=== PATIENT | male | born 1975 | race Caucasian/White ===

== ENCOUNTER 2018-09-22 17:21 | Emergency (ER) | payer MEDICAID, OTHER, SELFPAY ==
[2018-09-22 17:22] VITALS: BP 139/76; PULSE 72; RESP 17; TEMP 36.6; O2SAT 97; BMI 35.0
--- NOTE | 2018-09-22 17:29 | RAD_ITS ---
STUDY: X-RAY - LEFT KNEE REASON FOR EXAM: Male, 43 years old. Left knee pain denies injury TECHNIQUE: 4 view(s) of the knee. COMPARISON: None. FINDINGS: Normal visualized distal femur. Normal visualized proximal tibia and fibula. Normal proximal tibiofibular articulation. There is mild degenerative arthrosis of the medial femorotibial compartment. Normal lateral femorotibial compartment. There is mild degenerative arthrosis of the patellofemoral articulation. There is mild soft tissue edema on the medial aspect of the knee. RAD/Knee 4 or More Views IMPRESSION: Soft tissue edema. Mild arthrosis. No visualized acute fracture. Electronically Signed: Sabiha Lam MD at 17:50 EDT Tel , Service support ,
[2018-09-22 18:55] VITALS: BP 158/96; O2SAT 100
--- NOTE | 2018-09-22 19:26 | ED.DCSUM_ITS ---
- ER Visit Summary Date of Service: 09/22/18 Chief Complaint: Left knee pain History of Present Illness: The patient is a 43 M who presents with knee pain onset this morning. 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 Patient began having left knee pain w ith radiation down to the foot this morning. Pain is burning and constant. It is worse with weightbearing and he has pain shooting down the medial left calf into the left big toe. Patient is also having pain to the lateral knee. He denies any fever, or other constitutional symptoms. No history of trauma. He has a history of left arthrocentesis in that knee for unknown reason in the past. Patient has history of hypertension. No other medical problems. Physical Examination: Vital signs: afebrile, hemodynamically stable, no hypoxia on room air General: well nourished, well developed, in no distress Skin: warm, dry, no rash, no pallor HEENT: normocephalic and atraumatic; PERRL, EOMI, moist mucous membranes Cardiovascular: regular rate and rhythm, 2+ pulses all distal extremities Respiratory: No increased work of breathing, MSK: Moves all extremities, no deformities, normal strength, symmetric appearance of the bilateral knees. Left calf is greater in circumference than the right, no tenderness or palpable cords, sensation motor function intact in the distal lower extremities, no varus or valgus laxity of the left knee, negative anterior posterior drawer sign, mild diffuse tenderness to the medial and lateral margins, no joint effusion palpated, no fullness in the popliteal fossa, full active extension and passive flexion intact beyond 90 degrees. Neuro: Awake and alert, oriented ?4. No facial droop, sensation and motor function intact and symmetric Test Results: Clinical Impression(s) from Imaging Studies Knee X-Ray 09/22/18 17:29 IMPRESSION: Soft tissue edema. Mild arthrosis. No visualized acute fracture. Electronically Signed: Sabiha Lam MD at 17:50 EDT Tel , Service support , Venous Duplex 09/22/18 21:10 IMPRESSION: Left lower extremity venous Doppler exam negative for deep venous thrombosis. Electronically Signed: Cristina Pham MD at 22:52 EDT , Service support , Medications Given Discontinued Medications Ibuprofen (Motrin) 600 mg PO X1 ONE Stop: 09/22/18 19:24 Last Admin: 09/22/18 20:02 Dose: 600 mg Emergency Department Course and Treatment: XRay shows no bony abnormalities. Given patient's occupation and the asymmetric calf size with the pain, ultrasound performed to rule out DVT. Ice was applied to the knee patient was given ibuprofen for pain. There was no DVT noted on the ultrasound. Patient was given Tobias wrap for the knee. He was given follow-up with orthopedics. She was feeling better after treatment. Patient will return if any worsening of his condition. He was discharged home. Treatment Plan: [] Disposition: [] Impression: Knee sprain This note was generated with [employer] dictation software. It may contain incorrect words, spelling, and punctuation that were not noted in review of the chart prior to signing ED Disposition - Plan for ED Patient: Disposition: Home or Assisted Living Instructions: ED Sprain Knee Referrals: Finn Salinas MD [Primary Care Provider] - Lazaro Bailey DO [STAFF PHYSICIAN] - 1 Week if not improving Additional Instructions: Rest and elevate the leg when possible. Apply ice 3-4 times a day. Use ibuprofen as needed for pain. Use the Tobias wrap as needed for comfort. If you continue to have difficulties with your knee, please follow-up with your orthopedic doctor on this paperwork. If you have any worsening of your condition or any new concerning symptoms, please return immediately to the emergency department for another evaluation.
[2018-09-22] MEDS: Ibuprofen 600 MG Tablet PO (20:02)
--- NOTE | 2018-09-22 21:10 | US_ITS ---
STUDY: VENOUS DOPPLER ULTRASOUND - LEFT LOWER EXTREMITY REASON FOR EXAM: Male, 43 years old. Left knee pain. TECHNIQUE: Ultrasound evaluation of the deep vein system to include coles-scale imaging and compression was performed. Coles-scale imaging and Doppler sonographic evaluation, including duplex spectral analysis and qualitative color flow sonography, was performed. COMPARISON: None. FINDINGS: Common Femoral Vein: Normal compression, spontaneity and augmentation. Normal color Doppler. Common Femoral Vein/Greater Saphenous Junction: Normal compression. Femoral Proximal: Normal compression. Femoral Middle: Normal compression, spontaneity and augmentation. Normal color Doppler. Femoral Distal: Normal compression. Popliteal Vein: Normal compression, spontaneity and augmentation. Normal color Doppler. Posterior Tibial Vein: Normal compression. Peroneal Vein: Normal compression. US/Venous Duplex Imag/Limited/Uni IMPRESSION: Left lower extremity venous Doppler exam negative for deep venous thrombosis. Electronically Signed: Cristina Pham MD at 22:52 EDT , Service support ,
[2018-09-22 23:06] VITALS: BP 139/76; PULSE 72; RESP 17; O2SAT 97
== END 2018-09-22 23:07 | disposition home or self-care (01) ==
PROVIDERS: Emergency Provider Emergency Medicine; Family Provider Internal Medicine; PCP Internal Medicine
DX: S83.92XA Sprain of unspecified site of left knee, initial encounter (principal); X50.0XXA Overexertion from strenuous movement or load, initial encounter; Y93.9 Activity, unspecified; Y92.89 Other specified places as the place of occurrence of the external cause; Y99.9 Unspecified external cause status; I10 Essential (primary) hypertension
CPT/HCPCS: 73564; 93971; 99283

== ENCOUNTER 2019-12-08 09:14 | Emergency (ER) | payer BC, SELFPAY ==
[2019-12-08 09:15] VITALS: BP 135/87; PULSE 80; RESP 18; TEMP 36.6; O2SAT 98; BMI 34.6
--- NOTE | 2019-12-08 09:26 | RAD_ITS ---
STUDY: X-RAY - LEFT FOOT CLINICAL: Male, 44 years old. Stepped in a hole 2 days ago, heel pain. TECHNIQUE: 4 view(s) of the foot. COMPARISON: Ankle same date FINDINGS: Osseous structures of the foot appear intact, normally articulated, normally mineralized, preserved arch, unremarkable soft tissues. Achilles insertion enthesophyte and plantar calcaneal spur. RAD/Foot min 3 Views IMPRESSION: No radiographic evidence of acute foot injury. Electronically Signed: Kishan Oneal MD at 11:03 EDT Tel , Service support ,
--- NOTE | 2019-12-08 09:26 | RAD_ITS ---
STUDY: X-RAY - LEFT ANKLE REASON FOR EXAM: Male, 44 years old. Stepped in hole 2 days ago, heel pain. TECHNIQUE: 3 view(s) of the ankle. COMPARISON: Foot same date FINDINGS: No significant ankle soft tissue swelling is evident. Calcaneus appears intact. Proximal foot intact. Distal tibia and fibula intact, tibiotalar articulation normal, dome of the talus normal. Subtalar joint appears normal. RAD/Ankle min 3 Views IMPRESSION: No radiographic evidence of acute ankle injury. Electronically Signed: Kishan Oneal MD at 11:27 EDT Tel , Service support ,
--- NOTE | 2019-12-08 10:07 | ED.DCSUM_ITS ---
History of Present Illness <PietroFrank - Last Filed: 12/08/19 10:25> Informant: Patient Occurred: Yesterday Mechanism/Context: Fall Onset: Yesterday Context: Sudden Onset Timing: Continuous Quality of Pain: Sharp Location: left leg/ankle Current Severity: Moderate Maximum Severity: Severe Worsened by: walking Relieved by: rest Associated Symptoms: Negative for: Parasthesia, Weakness, Loss of Funtion Narrative: 44-year-old male presents with left lower extremity pain after he stepped in a hole yesterday and inverted his ankle. He is having ankle and foot pain. Did not fall to the ground. No head trauma. No loss of consciousness. No other injuries. He is still ambulatory. Tetanus Immunization: Unknown Prior similar symptoms: No Recent Illness/Hospitalization: No <Ming Love - Last Filed: 12/08/19 10:28> Chief Complaint: Lower Extremity Injury Past Medical History <WestbrookFrank - Last Filed: 12/08/19 10:25> Prior records reviewed: Yes Past Medical History: - - Hypertension Surgical History: no surgical history Lives: With Family Smoking Status: Never smoker Alcohol: Occasional Drugs: None <Ming Love - Last Filed: 12/08/19 10:28> - Allergies and Home Meds Allergies/Adverse Reactions: Allergies No Known Allergies Allergy (Verified 12/08/19 09:17) Primary Care Physician: Finn Salinas MD [Primary Care Provider] - Review of Systems All systems negative except as indicated General: Denies: Chills, Fever, Sweats Eyes: Denies: Visual changes - bilaterally, Diplopia ENT: Denies: Rhinorrhea, Sore throat Cardiovascular: Denies: Chest pain, Palpitations Respiratory: Denies: Dyspnea, Cough, Dyspnea on exertion Gastrointestinal: Denies: Abdominal pain, Nausea, Vomiting, Diarrhea, Melena, Hematochezia Genitourinary: Denies: Dysuria, Hematuria, Frequency Musculoskeletal: Reports: Swelling, Extremity Pain. Denies: Myalgias, Arthralgias, Neck pain, Back pain Skin: Denies: Rash, Wounds Neurological: Denies: Headache, Weakness, Numbness <Ming Love - Last Filed: 12/08/19 10:28> Physical Exam Vital Signs/Narrative: Vital Signs Temp Pulse Resp BP Pulse Ox 06/13/20 09:15 98 F 80 18 135/87 H 98 <Frank Westbrook - Last Filed: 12/08/19 10:25> Vital Signs/Narrative: Vital Signs Temp Pulse Resp BP Pulse Ox 12/08/19 09:15 98 F 80 18 135/87 H 98 Inital Vital Signs reviewed: Yes - Extremity Exam Left Ankle: - - Mild swelling left ankle. Skin intact. No deformity. He has bony tenderness over his lateral malleolus, calcaneus and dorsum of his midfoot. He is able to plantarflex and dorsiflex. Nicolas test is negative. DP and PT pulses are normal. Capillary refill and sensation all 5 toes normal. No proximal fibular tenderness. Knee is nontender on palpation. He has normal active range of motion of his knee. General: Well nourished, Well developed Head: Normocephalic, Atraumatic Eyes: Perrl, EOMI ENT: No Trauma, Moist Mucous Membranes Neck: Nontender, Full ROM Cardiovascular: Regular rate, Regular rhythm, No murmurs Respiratory: No distress, CTA bilaterally, Chest nontender Abdomen: Soft, Nontender, Nondistended, Normal bowel sounds Back: Nontender Skin: Normal color, No rash Neurological: Alert, Oriented x3, Cranial nerves II-XII grossly intact, Normal Strength, Normal Sensation Psychological: Normal affect <Ming Loev - Last Filed: 12/08/19 10:28> Diagnostic/Tx/Re-eval - Medical Decision Making Evaluate the patient 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 44-year-old male on was walking stepped in a hole and complaining of pain primarily to his left heel ankle and proximal foot. No other injuries. Ill-appearing middle-aged male no acute distress vital signs stable afebrile. HEENT, neck, heart, lung, abdominal exam are all unremarkable. Chest were nontender. Pelvic girdle intact. Full range of motion of both hips, knees and ankles. He has mild pain on palpation primarily in the left heel. Also the distal calf and ankle. There is no gross bony deformity. There is only minimal swelling. His DP pulses intact. He is able to wiggle his toes. There is no gross bony deformity. Skin is intact. Achilles tendon is intact. Otherwise exam unremarkable. X-ray left foot no acute abnormality 3 views read by myself. X-ray left ankle 3 views read by myself no acute abnormality. No fracture or dislocation. Impression: 1. Acute fall 2. Acute left heel contusion/ankle sprain and calf strain. Ice, elevate and Tylenol Motrin for pain. Follow-up with not improving. Patient was offered and deferred a postop shoe. <Frank Westbrook - Last Filed: 12/08/19 10:25> ED Disposition <Frank Westbrook - Last Filed: 12/08/19 10:25> <Ming Love - Last Filed: 12/08/19 10:28> - Plan for ED Patient: Disposition: Home or Assisted Living Diagnosis: Contusion of left heel, Strain of left calf muscle Instructions: ED EXTREMITY CONTUSION Lower, ED Strain Muscle Ext Referrals: Finn Salinas MD [Primary Care Provider] -
[2019-12-08] MEDS: Acetaminophen 500 MG Tablet 1000 MG PO (10:53)
--- OUTSIDE RECORDS SUMMARY | 2020-04-13 12:55 | XMS RPT_ITS | CCD ---
:1975 External Reference #:[id number] Author Organization [facility] Care Team Providers Name Role Phone Taylor Lala Primary Care Provider Medications Medication Name Sig Date Prescriber Location fluticasone fluticasone (FLONASE) 11-16-[address] [facility] 50 mcg/actuation Finn Lala (4419 5) nasal spray Indications: Acute non-recurrent frontal sinusitis Use 2 Sprays in each nostril once daily. 1 Bottle 2 11/16/2018 Active Comment: Use 2 Sprays in each nostril once daily. Lisinopril lisinopril (ZESTRIL, 07-13-2019 - Lucía ([facility] PRINIVIL) 20 mg tablet 12-21-2019 Older (4419 5) Indications: Essential hypertension Take 1 tablet by mouth once daily. 30 tablet 0 12/19/2019 12/21/2019 Discontinued Comment: Take 1 tablet by mouth once daily. Problems Category Problem Name Status Date Location Essential hypertension Essential hypertension Active 07-01-19 - [facility] (87108) Other nutritional; Obesity Active 12-06-2007 - [facility] endocrine; and (84611) metabolic disorders Other upper respiratory Seasonal allergic Active 07-27-2010 - [facility] disease rhinitis (94338) Results Result Name Value Range Unit Interpretation Flag [facility]INT[facility] Normal 12-24-2019 [facility] NADYASAI Douglass [place] ([id number]) 1975 [facility] Date Time Provider Department ([id number]) 12/24/19 FINN LALA During your visit today, we recorded the following informati on about you: Abby Salomon LPN 12/24/2019 10:24 AM Signed ----- Message from Finn Lala sent at 12/23/2019 2:04 PM EDT ----- All labs within normal limits. Abby Salomon LPN 12/24/2019 10:26 AM Signed Left message to call office and speak to nurse for non -urgent results. Abby Salomon LPN 01/17/2020 11:55 AM Signed Patient returned call 12/24/2019, spoke to Nurse. Abby Salomon LPN Allergies As of Date: 12/24/2019 (No Known Allergies) Date Reviewed: 08/27/2019 [facility] [place] - Fully Assessed Reason for Visit: Results [95] Prescriptions as of 12/24/2019 Sig: LISINOPRIL 20 MG TABLET Take 1 tablet by mouth once d* NAPROXEN 500 MG TABLET Take 1 tablet by mouth twice * FLUTICASONE PROPIONATE 50 MCG* Use 2 Sprays in each nostril * More... Problem List As Of Date 12/24/2019 Noted Resolved OBESITY NOS [E66.9] 12/06/2007 More... Vasectomy status [Z98.52] 12/26/2007 07/27/2010 More... Depressive disorder, not elsewhere classified [*06/16/2009 0 11/16/2018 Seasonal allergic rhinitis [J30.2] 07/27/2010 Essential hypertension [I10] 07/01/2017 Anxiety disorder [F41.9] 07/01/2017 11/16/2018 Encounter Status:Closed by ABBY SALOMON LPN on 01/17/20 [facility] Telephone (FAMPWS) Normal 12-24-2019 [facility] SAI CHASE ([id number]) 1975 [facility] Date Time Provider Department ([id number]) 12/24/19 FINN LALA During your visit today, we recorded the following informati on about you: Araceli Mckenna LPN, LPN 12/24/2019 10:55 AM Signed ----- Message from Finn Lala sent at 12/23/2019 2:04 PM EDT ----- All labs within normal limits. Araceli Mckenna LPN, LPN 12/24/2019 10:57 AM Signed Attempted to contact pt Messages states call not available at this time. Will need to try back Araceli Mckenna LPN, LPN 12/24/2019 1:18 PM Signed Spoke with pt gave information provided. Pt voices gerson winters. Allergies As of Date: 12/24/2019 (No Known Allergies) Date Reviewed: 08/27/2019 Reviewed by: Kusum ([facility]) [place] - Fully Assessed Reason for Visit: Results [95] Prescriptions as of 12/24/2019 Sig: LISINOPRIL 20 MG TABLET Take 1 tablet by mouth once d* NAPROXEN 500 MG TABLET Take 1 tablet by mouth twice * FLUTICASONE PROPIONATE 50 MCG* Use 2 Sprays in each nostril * More... Problem List As Of Date 12/24/2019 Noted Resolved OBESITY NOS [E66.9] 12/06/2007 More... Vasectomy status [Z98.52] 12/26/2007 07/27/2010 More... Depressive disorder, not elsewhere classified [*06/16/2009 0 11/16/2018 Seasonal allergic rhinitis [J30.2] 07/27/2010 Essential hypertension [I10] 07/01/2017 Anxiety disorder [F41.9] 07/01/2017 11/16/2018 Encounter Status:Closed by ARACELI MCKENNA LPN on 12/24/19 progress on 2019-11 PROGRESS HNO ID: [id number] Normal 12-21-2019 [facility] Author: Finn Lala [facility] ([id number]) Service: ? Author Type: Physician Type: Progress Notes Filed: 12/21/2019 12:55 PM Note Text: This note was created using [employer]. Subjective Patient presents with: ER F/U Hypertension Sai Chase is a 44 year old male. He stepped into a ho le 12/06 and injured his left foot and ankle. He went to the ER where he was diagnosed with heel contusion, ankle and calf sprain. He was advised O TC analgesics and he was taking Tylenol with some relief. Thick socks help ed. He still had pain on initial weight bearing and prolonged walking or standing on a hard surface. His hypertension was controlled now. Review of Systems Constitutional: Negative. Respiratory: Negative. Cardiovascular: Negative. Gastrointestinal: Negative. Musculoskeletal: Positive for arthralgias. Neurological: Negative. ACTIVE PROBLEM LIST Obesity, Unspecified Seasonal Allergic Rhinitis Essential Hypertension Current Outpatient Medications Medication Sig - [START ON 01/16/2020] lisinopril (ZESTRIL, PRINIVIL) 20 mg tablet Take 1 tablet by mouth once daily. - fluticasone (FLONASE) 50 mcg/actuation nasal spray Use 2 S prays in each nostril once daily. - naproxen (NAPROSYN) 500 mg tablet Take 1 tablet by mouth t wice daily as needed (for pain/inflammation). Take with food. No current facility-administered medications for this visit. Objective BP 118/60 Pulse 80 Temp 36.6 ?C (97.8 ?F) (Tympanic) R abigail 16 Wt 95.7 kg (211 lb) Physical Exam Constitutional: Appearance: He is not ill-appearing. Cardiovascular: Rate and Rhythm: Normal rate and regular rhythm. Heart sounds: No murmur. No gallop. Pulmonary: Breath sounds: Normal breath sounds. No wheezing or rales. Musculoskeletal: General: No swelling. Left knee: Normal. Left ankle: He exhibits normal range of motion, no swelling, no ecchymosis and no deformity. Tenderness. Achilles tendon nor mal. Left lower leg: He exhibits tenderness. He exhibits no bony tenderness, no swelling and no deformity. No edema. Left foot: Normal range of motion. Tenderness present. No sw elling, crepitus or deformity. Neurological: Mental Status: He is alert. ER reports reviewed. X rays left foot and ankle negative. Assessment and Plan ASSESSMENT/PLAN: 1. Sprain of left foot, subsequent encounter - ICD9: V58.89, 845.10, ICD10: S93.602D (primary diagnosis) - NAPROXEN 500 MG TABLET. Take one(1) tablet two(2) times da cydney as needed. Discussed medication dosage, usage, goals of therapy , and side effects. - CBC 2. Essential hypertension - ICD9: 401.9, ICD10: I10 - good control - Continue current medication(s) - Goal of BP <130/80 - LISINOPRIL 20 MG TABLET - COMP METABOLIC PANEL - LIPID PANEL, NONFASTING 3. Encounter for screening for HIV - ICD9: V73.89, ICD10: Z1 1.4 - HIV 1 2 COMBO(AG/AB),WITH REFLEX TO DIFFERENTIATION 4. Need for hepatitis C screening test - ICD9: V73.89, ICD10 : Z11.59 - HEP C AB IA BLOOD Patient indicated understanding and willingness to follow re commendations. Finn Lala MD lipid panel, nonfast on 2019-12-21 Cholesterol [Mass/Vol] 140 <200 mg/dL Normal 020 [facility] [place] [facility] (27594) Comment: Result Comment: <200 mg/dL, Desirable 200-239 mg/dL, Borderline hi gh >239 mg/dL, High Performed By: #### CMP, CBC, LIPNF, AHCV, HIV12C ####[facility] [address] [place], [place] [phone] Cholesterol in 1.88 <2.54 mg/dL Normal 12-21-2019 [facility] LDL/Cholesterol in HDL [[facility] (66441) ratio] Comment: Result Comment: Reference: 1. National Cholesterol Educ ation Program ATP III Guideline At-A-Glance Quick Desk Reference: National Heart, Lung, and Blood [place]. National Institutes of Health. 2001: NIH Publication No. 01-3305. 2. An International Atherosc lerosis Society position paper: global recommendations for the management of dyslipidemia: executive summary, Atherosclerosis. 2014: 232(2):410-413. Performed By: #### CMP, CBC, LIPNF, AHCV, HIV12C ####[facility] [address] [place], [place] [phone] Cholesterol.total/Cholesterol in 3.50 <5.10 mg/dL Normal 12-21-2019 [facility] HDL [Mass ratio] [facility] (85032) Comment: Performed By: #### CMP, CBC, LIPNF, AHCV, HIV12C ####[facility] [place], [place] [phone] HDL Cholesterol, NF 40 >39 mg/dL Normal 12-21-2019 [facility] [place] [facility] (54058) Comment: Result Comment: 40-59 mg/dL, Acceptable >59 mg/dL, High: Negative ri sk factor for coronary heart disease <40 mg/dL, Low: Positive ris k factor for coronary heart disease Performed By: #### CMP, CBC, LIPNF, AHCV, HIV12C ####[facility] [place], [place] [phone] LDL Cholesterol, NF 75 <100 mg/dL Normal 12-21-2019 [facility] [place] [facility] (59804) Comment: Result Comment: <100 mg/dL, Optimal 100-129 mg/dL, Near optimal/ above optimal 130-159 mg/dL, Borderline hi gh 160-189 mg/dL, High >189 mg/dL, Very high Secondary prevention optimal LDL Cholesterol levels are recommended to be < 70 mg/dL Performed By: #### CMP, CBC, LIPNF, AHCV, HIV12C ####[facility] [address] [place], [place] [phone] Non HDL Chol, NF 100 <130 mg/dL Normal 12-21-2019 [facility] (03164) Comment: Result Comment: <130 mg/dL, Optimal 130-159 mg/dL, Near optimal/ above optimal 160-189 mg/dL, Borderline hi gh 190-219 mg/dL, High >219 mg/dL, Very high Secondary prevention optimal non HDL Cholesterol levels are recommended to be < 100 mg/dL Performed By: #### CMP, CBC, LIPNF, AHCV, HIV12C ####[facility] [address] [place], [place] [phone] Triglycerides, NF 126 <150 mg/dL Normal 12-21-2019 [facility] (77389) Comment: Result Comment: <150 mg/dL, Normal 150-199 mg/dL, Borderline hi gh 200-499 mg/dL, High >499 mg/dL, Very high Performed By: #### CMP, CBC, LIPNF, AHCV, HIV12C ####[facility] [place], [place] [phone] VLDL Cholesterol, NF 25 <30 mg/dL Normal 0 [facility] [place] [facility] (64468) Comment: Performed By: #### CMP, CBC, LIPNF, AHCV, HIV12C ####[place] [address] [place], [place] [phone] [id number] ag +[id number] ab on 2019-12-21 HIV 12 Ag/Ab Non Reactive Non Reactive Normal 12-21-2019 [facility] [place] [facility] (33602) Comment: Performed By: #### CMP, CBC, LIPNF, AHCV, HIV12C ####[place] [address] [place], [place] [phone] HIV-1/2 Antibody Normal 12-21-2019 [facility] (00667) Comment: Result Comment: Test Not Ind icated Negative No evidence of HIV-1 or HIV- 2 infection. Should recent infection be suspected, repeat testing may be considered 2-3 weeks after this draw. HIV Information: [place] Rev. C ode 3701.243(E): This information has been di sclosed to you from confidential records protected from disclosure by state law. You shall make no further disclosure of this information without the specific, written, and i nformed release of the indiv idual to whom it pertains or as otherwise permitted by state law. A general authorization for the release of medical or other information is not sufficient for the purpose of the release of HIV test results or diagnoses. Performed By: #### CMP, CBC, LIPNF, AHCV, HIV12C ####[facility] [place], [place] [phone] hepatitis c ab ia o n 2019-12-21 Hepatitis C Ab IA Negative Negative Normal 12-21-2019 [facility] (80601) Comment: Performed By: #### CMP, CBC, LIPNF, AHCV, HIV12C ####[place] [address] [place], [place] [phone] comp metabolic panel on 2019-12-21 Albumin [Mass/Vol] 4.7 3.9-4.9 g/dL Normal 12-21-2019 [facility] [place] [facility] (61681) Comment: Performed By: #### CMP, CBC, LIPNF, AHCV, HIV12C ####[place] [address] [place], [place] [phone] ALP [Catalytic activity/Vol] 58 38-113 U/L Normal 0 12-21-2019 [facility] [place] [facility] (55408) Comment: Performed By: #### CMP, CBC, LIPNF, AHCV, HIV12C ####[facility] [place], [place] [phone] ALT [Catalytic activity/Vol] 35 10-54 U/L Normal 0 12-21-2019 [facility] [place] [facility] (11731) Comment: Performed By: #### CMP, CBC, LIPNF, AHCV, HIV12C ####[facility] [place], [place] [phone] Anion gap [Moles/Vol] 11 9-18 mmol/L Normal 12-21-19 [facility] [place] [facility] (12499) Comment: Performed By: #### CMP, CBC, LIPNF, AHCV, HIV12C ####[place] [address] [place], [place] [phone] AST [Catalytic activity/Vol] 29 14-40 U/L Normal 0 12-21-2019 [facility] [place] [facility] (28270) Comment: Performed By: #### CMP, CBC, LIPNF, AHCV, HIV12C ####[facility] [place], [place] [phone] Bilirubin [Mass/Vol] 0.4 0.2-1.3 mg/dL Normal 0 [facility] [place] [facility] (39033) Comment: Performed By: #### CMP, CBC, LIPNF, AHCV, HIV12C ####[place] [address] [place] [phone] Calcium [Mass/Vol] 10.1 8.5-10.2 mg/dL Normal 12-21-2019 [facility] [place] [facility] (49154) Comment: Performed By: #### CMP, CBC, LIPNF, AHCV, HIV12C ####[place] [address] [place], [place] [phone] Chloride [Moles/Vol] 98 97-105 mmol/L Normal 0 [facility] [place] [facility] (39606) Comment: Performed By: #### CMP, CBC, LIPNF, AHCV, HIV12C ####[place] [address] [place], [place] [phone] CO2 [Moles/Vol] 26 22-30 mmol/L Normal 12-21-2019 [facility] (83778) Comment: Performed By: #### CMP, CBC, LIPNF, AHCV, HIV12C ####[place] [address] [place], [place] [phone] Creatinine [Mass/Vol] 1.08 0.73-1.22 mg/dL Normal 12-21-19 20 [facility] [place] [facility] (06795) Comment: Performed By: #### CMP, CBC, LIPNF, AHCV, HIV12C ####[place] [address] [place], [place] [phone] eGFR- Amer. >60 Normal 12-21-2019 [facility] [place] [facility] (01272) Comment: Performed By: #### CMP, CBC, LIPNF, AHCV, HIV12C ####[place] [address] [place], [place] [phone] GFR/1.73 sq M predicted >60 mL/min/{1.73_m2} Normal 12-21-2019 [facility] among non-blacks MDRD [facility] (60684) (S/P/Bld) [Vol rate/Area] Comment: Result Comment: eGFR (Estima jai GFR) Units of measure: mL/min/1.73 meters squared eGFR is derived from the ree xpressed MDRD Study equation using the following parameters: serum creatinine, age, gender and race. The creatinine assay has been calibrated to be traceable to IDMS. An eGFR <60 mL/min/1.73m2 fo r >3 months is consistent with chronic kidney disease. Refer to KDOQI guidelines for clinical interpretation. In patients with unstable re nal function, e.g. those with acute kidney injury, the eGFR may not accurately reflect actual GFR. Performed By: #### CMP, CBC, LIPNF, AHCV, HIV12C ####[facility] [address] [place], [place] [phone] Glucose [Mass/Vol] 95 74-99 mg/dL Normal 12-21-2019 [facility] [place] [facility] (57769) Comment: Result Comment: The [place] Diabetes Association (ADA) provides guidance for cutoff values for fasting glucose and random glucose. The ADA defines fasting as no caloric intake for at least 8 hours. Fas ting plasma glucose results between 100 to 125 mg/dL indicate increased risk for diabetes (prediabetes). Fasting plasma glucose resul ts greater than or equal to 126 mg/dL meet the criteria for diagnosis of diabetes. In the absence of unequivocal hyperglycemia, results should be confirmed by repeat testing. In a patient with classic s ymptoms of hyperglycemia or hyperglycemic crisis, random plasma glucose results greater than or equal to 200 mg/dL meet the criteria for diagnosis of diabetes. Reference: Standards of [facility] in Diabetes 2016, [place] Diabetes Association. Diabetes Care. 2016.39(Suppl 1). Performed By: #### CMP, CBC, LIPNF, AHCV, HIV12C ####[facility] [address] [place], [place] [phone] Potassium [Moles/Vol] 4.0 3.7-5.1 mmol/L Normal 12-21-19 20 [facility] [place] [facility] (31107) Comment: Performed By: #### CMP, CBC, LIPNF, AHCV, HIV12C ####[facility] [address] [place], [place] [phone] Protein [Mass/Vol] 7.7 6.3-8.0 g/dL Normal 12-21-2019 [facility] [place] [facility] (83704) Comment: Performed By: #### CMP, CBC, LIPNF, AHCV, HIV12C ####[facility] [address] [place], [place] [phone] Sodium [Moles/Vol] 135 136-144 mmol/L Low 12-21-2019 [facility] [place] [facility] (99864) Comment: Performed By: #### CMP, CBC, LIPNF, AHCV, HIV12C ####[facility] [address] [place], [place] [phone] Urea nitrogen [Mass/Vol] 18 9-24 mg/dL Normal 12-20 [facility] [place] [facility] (72350) Comment: Performed By: #### CMP, CBC, LIPNF, AHCV, HIV12C ####[facility] [address] [place], [place] [phone] cnov on 2019-12-21 CNOV Office Visit (INTMWS) Normal 12-21-[address] [place] [address] SAI Leroy ([id number]) 1975 [facility] Date Time Provider Department ([id number]) 12/21/19 11:20 AM FINN LALA INTMWS During your visit today, we recorded the following informati on about you: Temperature Pulse Respiration Blood pressure 97.8 degrees 80/minute 16/minute 118/60 Weight 95.7 kg Finn Lala MD 12/21/2019 12:55 PM Signed This note was created using [employer]. Subjective Patient presents with: ER F/U Hypertension Sai Chase is a 44 year old male. He stepped into a ho le 12/06 and injured his left foot and ankle. He went to the ER where he was diagnosed with heel contusion, ankle and calf sprain. He was advised OTC analgesics and he was taking Tylenol with some relief. Thick socks helped. He still had pain on initial weight bearing and prolonged walking or standing o n a hard surface. His hypertension was controlled now. Review of Systems Constitutional: Negative. Respiratory: Negative. Cardiovascular: Negative. Gastrointestinal: Negative. Musculoskeletal: Positive for arthralgias. Neurological: Negative. ACTIVE PROBLEM LIST Obesity, Unspecified Seasonal Allergic Rhinitis Essential Hypertension Current Outpatient Medications Medication Sig - [START ON 01/16/2020] lisinopril (ZESTRIL, PRINIVIL) 20 mg tablet Take 1 tablet by mouth once daily. - fluticasone (FLONASE) 50 mcg/actuation nasal spray Use 2 S prays in each nostril once daily. - naproxen (NAPROSYN) 500 mg tablet Take 1 tablet by mouth t wice daily as needed (for pain/inflammation). Take with food. No current facility-administered medications for this visit. Objective BP 118/60 Pulse 80 Temp 36.6 ?C (97.8 ?F) (Tympanic) R abigail 16 Wt 95.7 kg (211 lb) Physical Exam Constitutional: Appearance: He is not ill-appearing. Cardiovascular: Rate and Rhythm: Normal rate and regular rhythm. Heart sounds: No murmur. No gallop. Pulmonary: Breath sounds: Normal breath sounds. No wheezing or rales. Musculoskeletal: General: No swelling. Left knee: Normal. Left ankle: He exhibits normal range of motion, no swelling, no ecchymosis and no deformity. Tenderness. Achilles tendon normal. Left lower leg: He exhibits tenderness. He exhibits no bony tenderness, no swelling and no deformity. No edema. Left foot: Normal range of motion. Tenderness present. No swelling, crepitus or deformity. Neurological: Mental Status: He is alert. ER reports reviewed. X rays left foot and ankle negative. Assessment and Plan ASSESSMENT/PLAN: 1. Sprain of left foot, subsequent encounter - ICD9: V58.8 9, 845.10, ICD10: S93.602D (primary diagnosis) - NAPROXEN 500 MG TABLET. Take one(1) tablet two(2) times da cydney as needed. Discussed medication dosage, usage, goals of therapy, and si de effects. - CBC 2. Essential hypertension - ICD9: 401.9, ICD10: I10 - good control - Continue current medication(s) - Goal of BP <130/80 - LISINOPRIL 20 MG TABLET - COMP METABOLIC PANEL - LIPID PANEL, NONFASTING 3. Encounter for screening for HIV - ICD9: V73.89, ICD10: Z1 1.4 - HIV 1 2 COMBO(AG/AB),WITH REFLEX TO DIFFERENTIATION 4. Need for hepatitis C screening test - ICD9: V73.89, ICD10 : Z11.59 - HEP C AB IA BLOOD Patient indicated understanding and willingness to follow re commendations. Finn Lala MD Referring Provider: SELF [200] Allergies As of Date: 12/21/2019 (No Known Allergies) Date Reviewed: 08/27/2019 Reviewed by: Kusum ([facility]) [place] - Fully Assessed Reason for Visit: ER F/U [41] Hypertension [168] Reason For Visit History Recorded Primary Visit Diagnosis:Sprain of left foot, subsequen t encounter [S93.602D] Other Visit Diagnoses:Essential hypertension [I10] Encounter for screening for HIV [Z11.4] Need for hepatitis C screening test [Z11.59] Order(s):[START ON 01/16/2020] lisinopril (ZESTRI L, PRINIVIL) 20 mg tabletTake 1 tablet by mouth once daily.Disp: 30 tabletRfl: 5 naproxen (NAPROSYN) 500 mg tabletTake 1 tablet by mouth twic e daily as needed (for pain/inflammation). Take with food.Disp: 30 tabletRfl: 0 CBC [SQCBC] Order #: [id number] FUTURE COMP METABOLIC PANEL [SQCMP] Order #: [id number] FUTURE LIPID PANEL, NONFASTING [SQLIPNF] Order #: [id number] FUTURE HIV 1 2 COMBO(AG/AB),WITH REFLEX TO DIFFERENTIATION [SQHIV12 ] Order #: [id number] FUTURE HEP C AB IA BLOOD [SQAHCV] Order #: [id number] FUTURE Prescriptions as of 12/21/2019 Sig: LISINOPRIL 20 MG TABLET Take 1 tablet by mouth once d* FLUTICASONE PROPIONATE 50 MCG* Use 2 Sprays in each nostril * NAPROXEN 500 MG TABLET Take 1 tablet by mouth twice * More... Problem List As Of Date 12/21/2019 Noted Resolved OBESITY NOS [E66.9] 12/06/2007 More... Vasectomy status [Z98.52] 12/26/2007 07/27/2010 More... Depressive disorder, not elsewhere classified [*06/16/2009 0 11/16/2018 Seasonal allergic rhinitis [J30.2] 07/27/2010 Essential hypertension [I10] 07/01/2017 Anxiety disorder [F41.9] 07/01/2017 11/16/2018 Prescriptions ordered this encounter Disp Refills Start End LISINOPRIL 20 MG TABLET 30 t* 5 01/16/2020 Route: ORAL Sig: Take 1 tablet by mouth once daily. NAPROXEN 500 MG TABLET 30 t* 0 12/21/2019 Route: ORAL Sig: Take 1 tablet by mouth twice daily as needed (for pain/ inflammation). Take with food. Medications Discontinued During This Encounter lisinopril (ZESTRIL, PRINIVIL) 20 mg* 30 t* 0 12/19/201912/20 Route: ORAL Sig: Take 1 tablet by mouth once daily. Disc: Reason for discontinue is not on file. Disposition: Return in about 3 months (around 03/22/2020), or if symptoms worsen or fail to improve. Follow-up and Disposition History Recorded Letter Text Encounter Status:Closed by FINN LALA MD on 12/21/19 cbc on 2019-12-21 Absolute nRBC <0.01 <0.01 Normal 12-21-2019 [facility] ([id number]) Comment: Performed By: #### CMP, CBC, LIPNF, AHCV, HIV12C ####[facility] [address] [place], [place] [phone] Erythrocyte distribution 12.0 11.5-15.0 % Normal 12-20 [facility] width (RBC) [Ratio] [facility] (65427) Comment: Performed By: #### CMP, CBC, LIPNF, AHCV, HIV12C ####[facility] [place], [place] [phone] Hematocrit (Bld) [Volume 43.9 39.0-51.0 % Normal 12-20 [facility] fraction] [facility] (34146) Comment: Performed By: #### CMP, CBC, LIPNF, AHCV, HIV12C ####[place] [address] [place], [place] [phone] Hemoglobin (Bld) 14.4 13.0-17.0 g/dL Normal 12-21-2019 [facility] [Mass/Vol] [facility] (61636) Comment: Performed By: #### CMP, CBC, LIPNF, AHCV, HIV12C ####[facility] [place], [place] [phone] MCH (RBC) [Entitic mass] 30.3 26.0-34.0 pG Normal 12-20 [facility] [place] [facility] ([id number]) Comment: Performed By: #### CMP, CBC, LIPNF, AHCV, HIV12C ####[facility] [place], [place] [phone] MCHC (RBC) [Mass/Vol] 32.8 30.5-36.0 g/dL Normal 12-21-19 20 [facility] [place] [facility] ([id number]) Comment: Performed By: #### CMP, CBC, LIPNF, AHCV, HIV12C ####[place] [address] [place], [place] [phone] MCV (RBC) [Entitic vol] 92.2 80.0-100.0 fL Normal 12-20 [facility] [place] [facility] ([id number]) Comment: Performed By: #### CMP, CBC, LIPNF, AHCV, HIV12C ####[place] [address] [place], [place] [phone] Platelet mean volume 9.9 9.0-12.7 fL Normal 0 [facility] [place] [facility] (Bld) [Entitic vol] ([id number]) Comment: Performed By: #### CMP, CBC, LIPNF, AHCV, HIV12C ####[facility] [place], [place] [phone] Platelets (Bld) [#/Vol] 314 150-400 k/uL Normal 2019 [facility] [place] [facility] ([id number]) Comment: Performed By: #### CMP, CBC, LIPNF, AHCV, HIV12C ####[facility] [place], [place] [phone] RBC (Bld) [#/Vol] 4.76 4.20-6.00 m/uL Normal 12-21-2019 [facility] ([id number]) Comment: Performed By: #### CMP, CBC, LIPNF, AHCV, HIV12C ####[facility] [place], [place] [phone] WBC (Bld) [#/Vol] 6.19 3.70-11.00 k/uL Normal 12-21-2019 [facility] [place] [facility] ([id number]) Comment: Performed By: #### CMP, CBC, LIPNF, AHCV, HIV12C ####[place] [address] [place], [place] [phone] cnco on 2019-12-20 [facility] Letter Text Normal 12-20-2019 [facility] ([id number]) obsolete on 2019-11 OBSOLETE Refill (INTMWS) Normal 12-19-2019 [facility] RIC CHASE ([id number]) 1975 [facility] Date Time Provider Department ([id number]) 12/19/19 FINN LALA During your visit today, we recorded the following informati on about you: Rosie Hui LPN 12/19/2019 11:48 AM Signed Patient has been identified by name and date of : Yes Pharmacy phones for refill(s): Pending Prescriptions Disp Refills LISINOPRIL 20 MG TABLET 30 tablet 5 Sig: Take 1 tablet by mouth once daily. ARNEL: No Date of last office visit in primary care: 07/13/19 Last 2 Encounter Wt Readings: Date: Wt: 08/27/2019 96.9 kg (213 lb 9.6 oz) 07/13/2019 97.1 kg (214 lb) Previous labs/tests for medication: Bloo d Pressure: No results found for: BUN, NA Last 1 Encounter BP Readings: Date: BP: 08/27/2019 110/78 Please advise. Thank you. Rosie Munguia APRN.CNP 12/19/2019 2:57 PM Signed Patient overdue for follow-up Lucía Munguia APRN.TIERRA Balderas Cma 12/19/2019 3:15 PM Signed The following approved medic ation requests have been transmitted electronically. Signed Prescriptions Disp Refills lisinopril (ZESTRIL, PRINIVIL) 20 mg tablet 30 tablet 0 Sig: Take 1 tablet by mouth once daily. ARNEL: No Authorizing Provider: LUCÍA MUNGUIA (TIERRA) Wilmer Balderas Cma Please assist with scheduling per below. Thank you. Caity South 12/19/2019 3:41 PM Signed 1st attempt to schedule follow up. MELINDA. Caity guerrero 2019 Fani Ardon 12/20/2019 9:37 AM Signed 2 nd attempt left message to return call. Please assist in scheduling Patient overdue for follow-up. Letter also mailed out. Rosie Hui LPN 04/10/2020 4:[address] Rosie Hui LPN Allergies As of Date: 12/19/2019 (No Known Allergies) Date Reviewed: 08/27/2019 Reviewed by: Kusum Sierra) Melida - Fully Assessed Reason for Visit: Refill Request [94] Refill Request [94] Reason For Visit History Recorded Visit Diagnosis:Essential hypertension [I10] Prescriptions as of 12/19/2019 Sig: X LISINOPRIL 20 MG TABLET Take 1 tablet by mouth once d* FLUTICASONE PROPIONATE 50 MCG* Use 2 Sprays in each nostril * More... Problem List As Of Date 12/19/2019 Noted Resolved OBESITY NOS [E66.9] 12/06/2007 More... Vasectomy status [Z98.52] 12/26/2007 07/27/2010 More... Depressive disorder, not elsewhere classified [*06/16/2009 0 11/16/2018 Seasonal allergic rhinitis [J30.2] 07/27/2010 Essential hypertension [I10] 07/01/2017 Anxiety disorder [F41.9] 07/01/2017 11/16/2018 Prescriptions ordered this encounter Disp Refills Start End LISINOPRIL 20 MG TABLET 30 t* 0 12/19/2019 12/21/2019 Route: ORAL Sig: Take 1 tablet by mouth once daily. Medications Discontinued During This Encounter Prescriptions - lisinopril (ZESTRIL, PRINIVIL) 20 mg tablet (Discontinued) Take 1 tablet by mouth once daily. Encounter Status:Closed by ROSIE HUI LPN on 0 progress on 2019-08 PROGRESS HNO ID: [id number] Normal 08-27-2019 [facility] Author: Kusum ([facility]) AbigailDemetrio [place] ([id number]) Service: ? Author Type: Nurse Practitioner Type: Progress Notes Filed: 08/27/2019 10:16 AM Note Text: Subjective HPI Sai Chase is a 44 year old male who presents with 2 days of cough and fever, headache, chills and body aches. He has jyoti en ibuprofen at home, last dose was 2.5 hours ago. Review of Systems Constitutional: Positive for chills, fever and malaise/fatig ue. HENT: Positive for congestion. Negative for sore throat. Respiratory: Positive for cough. Negative for sputum product ion and shortness of breath. Cardiovascular: Positive for chest pain (with cough). Gastrointestinal: Negative. Negative for diarrhea, nausea an d vomiting. Musculoskeletal: Positive for myalgias. Neurological: Positive for headaches. BP 110/78 Pulse 97 Temp 37.6 ?C (99.7 ?F) (Tympanic) R abigail 18 Wt 96.9 kg (213 lb 9.6 oz) SpO2 96% PAST MEDICAL HISTORY Diagnosis Date - Anxiety disorder 07/01/2017 - Depressive disorder, not elsewhere classified 06/16/2009 - OBESITY NOS 12/06/2007 - Seasonal allergic rhinitis 07/27/2010 - Vasectomy status 12/26/2007 PAST SURGICAL HISTORY Procedure Laterality Date - VASECTOMY 1999 ALLERGIES Patient has no known allergies. MEDICATIONS lisinopril (ZESTRIL, PRINIVIL) 20 mg tablet Take 1 tablet by mouth once daily. fluticasone (FLONASE) 50 mcg/actuation nasal spray Use 2 Spr ays in each nostril once daily. FAMILY HISTORY Problem Relation Age of Onset - None Mother - None Father - None Sister Social History Tobacco Use - Smoking status: Never Smoker - Smokeless tobacco: Never Used Substance Use Topics - Alcohol use: Yes Alcohol/week: 2.5 standard drinks Types: 1 Glasses of Wine (5oz) per week - Drug use: No Objective Physical Exam Constitutional: He is well-developed, well-nourished, and in no distress. He appears unhealthy. HENT: Right Ear: Tympanic membrane, external ear and ear canal nor mal. Left Ear: Tympanic membrane, external ear and ear canal norm al. Nose: Rhinorrhea present. Mouth/Throat: Uvula is midline and mucous membranes are norm al. Posterior oropharyngeal erythema present. No oropharyngeal exudate or posterior oropharyngeal edema. Neck: Neck supple. Cardiovascular: Normal rate, regular rhythm and normal heart sounds. Pulmonary/Chest: Effort normal and breath sounds normal. No respiratory distress. He has no wheezes. He has no rales. Frequent cough Lymphadenopathy: He has no cervical adenopathy. Neurological: He is alert. Skin: Skin is warm and dry. No rash noted. No erythema. Nursing note and vitals reviewed. ASSESSMENT/PLAN: 1. Influenza B - ICD9: 487.1, ICD10: J10.1 (primary diagnosi s) - OSELTAMIVIR 75 MG CAPSULE 2. Flu-like symptoms - ICD9: 780.99, ICD10: R68.89 - INFLUENZA AANDB MOLECULAR (POC) 3. Sore throat - ICD9: 462, ICD10: J02.9 - Rapid Strep negative in the office today - Discussed supportive care treatment with fluids, rest and analgesia. - The patient may also use warm salt water gargles, throat l ozenges and/or OTC throat spray as needed. - RAPID STREP TEST B/O - Follow-up with your PCP in 3-5 days if symptoms have not i mproved or sooner if symptoms worsen - Discussed red flags and need for immediate medical evaluat ion if any occur. - Discussed supportive care treatment with fluids, rest and analgesia. - Discussed expected course of illness Kusum Montez APRN.CNP cnov on 2019-08-27 CNOV Office Visit (UCWSTR) Normal 08-27-[address] [place] [address] Mine CHASESAI Potter ([id number]) 1975 [facility] Date Time Provider Department ([id number]) 08/27/19 9:15 AM KUSUM MONTEZ (TIERRA) WSTR During your visit today, we recorded the following informati on about you: Temperature Pulse Respiration Blood pressure 99.7 degrees 97/minute 18/minute 110/78 Weight 96.9 kg Kusum Montez APRN.CNP 08/27/2019 10:16 AM Signed Subjective HPI Saidrew Chase is a 44 year old male who present s with 2 days of cough and fever, headache, chills and body aches. He has taken i buprofen at home, last dose was 2.5 hours ago. Review of Systems Constitutional: Positive for chills, fever and malaise/fatig ue. HENT: Positive for congestion. Negative for sore throat. Respiratory: Positive for cough. Negative for sp utum production and shortness of breath. Cardiovascular: Positive for chest pain (with cough). Gastrointestinal: Negative. Negative for diarrhea, nausea an d vomiting. Musculoskeletal: Positive for myalgias. Neurological: Positive for headaches. BP 110/78 Pulse 97 Temp 37.6 ?C (99.7 ?F) (Tympanic) R abigail 18 Wt 96.9 kg (213 lb 9.6 oz) SpO2 96% PAST MEDICAL HISTORY Diagnosis Date - Anxiety disorder 07/01/2017 - Depressive disorder, not elsewhere classified 06/16/2009 - OBESITY NOS 12/06/2007 - Seasonal allergic rhinitis 07/27/2010 - Vasectomy status 12/26/2007 PAST SURGICAL HISTORY Procedure Laterality Date - VASECTOMY 1999 ALLERGIES Patient has no known allergies. MEDICATIONS lisinopril (ZESTRIL, PRINIVIL) 20 mg tab let Take 1 tablet by mouth once daily. fluticasone (FLONASE) 50 mcg /actuation nasal spray Use 2 Sprays in each nostril once daily. FAMILY HISTORY Problem Relation Age of Onset - None Mother - None Father - None Sister Social History Tobacco Use - Smoking status: Never Smoker - Smokeless tobacco: Never Used Substance Use Topics - Alcohol use: Yes Alcohol/week: 2.5 standard drinks Types: 1 Glasses of Wine (5oz) per week - Drug use: No Objective Physical Exam Constitutional: He is well-developed, well-nourished, and in no distress. He appears unhealthy. HENT: Right Ear: Tympanic membrane, external ear and ear canal nor mal. Left Ear: Tympanic membrane, external ear and ear canal norm al. Nose: Rhinorrhea present. Mouth/Throat: Uvula is midline and mucous membranes are norm al. Posterior oropharyngeal erythema present. No oropharyngeal exudate or posterior oropharyngeal edema. Neck: Neck supple. Cardiovascular: Normal rate, regular rhythm and normal heart sounds. Pulmonary/Chest: Effort normal and breath sounds normal. No respiratory distress. He has no wheezes. He has no rales. Frequent cough Lymphadenopathy: He has no cervical adenopathy. Neurological: He is alert. Skin: Skin is warm and dry. No rash noted. No erythema. Nursing note and vitals reviewed. ASSESSMENT/PLAN: 1. Influenza B - ICD9: 487.1, ICD10: J10.1 (primary diagnosi s) - OSELTAMIVIR 75 MG CAPSULE 2. Flu-like symptoms - ICD9: 780.99, ICD10: R68.89 - INFLUENZA AANDB MOLECULAR (POC) 3. Sore throat - ICD9: 462, ICD10: J02.9 - Rapid Strep negative in the office today - Discussed supportive care treatment with fluids, rest and analgesia. - The patient may also use warm salt ralph er gargles, throat lozenges and/or OTC throat spray as needed. - RAPID STREP TEST B/O - Follow-up with your PCP in 3-5 days if symptom s have not improved or sooner if symptoms worsen - Discussed red flags and need for immediate med ical evaluation if any occur. - Discussed supportive care treatment with fluids, rest and analgesia. - Discussed expected course of illness EMI Rush APRN.CNP 08/27/2019 9:59 AM Signed ASSESSMENT/PLAN: 1. Influenza B - ICD9: 487.1, ICD10: J10.1 (primary diagnosi s) - OSELTAMIVIR 75 MG CAPSULE 2. Flu-like symptoms - ICD9: 780.99, ICD10: R68.89 - INFLUENZA AANDB MOLECULAR (POC) 3. Sore throat - ICD9: 462, ICD10: J02.9 - Rapid Strep negative in the office today - Discussed supportive care treatment with fluids, rest and analgesia. - The patient may also use warm salt ralph er gargles, throat lozenges and/or OTC throat spray as needed. - RAPID STREP TEST B/O - Follow-up with your PCP in 3-5 days if symptom s have not improved or sooner if symptoms worsen - Discussed red flags and need for immediate med ical evaluation if any occur. - Discussed supportive care treatment with fluids, rest and analgesia. - Discussed expected course of illness Kusum Montez APRN.CNP [facility] PATIENT INFO INFLUENZA INTRODUCTION Influenza (commonly called the flu) is a highly contagious illness that can occur in children or adults of any age. It occurs more often in the winter months because people spend more time in close contact with one another. The flu is spread easily from xamdpa-og-iadeyf by co ughing, sneezing, or touching surfaces. Every year, complications of the flu require more than 200,000 people in the [place] to be hospitalized. Serious illness is m ore likely in the very young, older adults, women, and people who have cer tain health problems such as asthma or other forms of lung disease. There have been several widespread flu o utbreaks (called pandemics), which led to the deaths of many people worldwide. These outbreaks occu rred when new strains of influenza viruses formed (often from pigs or bird s) and humans became infected because they had no immunity to these viruse s. FLU SYMPTOMS Symptoms of seasonal flu can vary from person to person, but usually include: ? Fever (temperature higher than 100?F or 37.8?C) ? Headache and muscle aches ? Fatigue ? Cough and sore throat may also be present People with the flu usually have a fever for two to five day s. This is different than fever caused by other upper respi ratory viruses, which usually resolve after 24 to 48 hours. Some people have cold-like symptoms (runny nose, sore throat) during the flu while others have fever and muscle aches. Flu symptoms usually improve over two to five days, although the illness may last for a week or more. Weakness and fatigue may persist for several weeks Flu complications ? Complications of inf luenza occur in some people; pneumonia is the most common complicat ion. Pneumonia is a serious infection of the lungs, and is more likely to occur in people over the age of 65, people who live in meterman care facilities (nursing homes ), and those with other illnesses such as diabetes or conditions affecting the heart or lungs. FLU DIAGNOSIS Influenza is usually diagnosed based on symptoms (fever, cou gh and muscle aches). Lab testing for infl uenza is performed in certain cases, such as during a new influenza outbreak in a community. FLU TREATMENT When to seek help ? Most people with the flu recover w ithin one to two weeks without treatment. However, serious complications of t he flu can occur. Call your doctor or nurse immediately if: ? You feel short of breath or have trouble breathing ? You have pain or pressure in your chest or stomach ? You have signs of being dehydrated, such as dizzines s when standing or not passing urine ? You feel confused ? You cannot stop vomiting or you cannot drink enough fluids There are several groups of people who are at increased risk for flu complications. These include women, you ng children (<5 years of age, and especially <2 years of age), people ?65 years of age, an d people with certain diseases such as chronic lung di sease (such as asthma), heart disease, diabetes, immunosuppressing conditions (such as HIV infectio n or transplantation), and some other diseases. If you or your ch ild has flu symptoms and is at increased risk of flu complications , you should call your healthcare provider. Treat symptoms ? Treating the symptoms of influenza can help you to feel better, but will not make the flu go away faster. ? Rest until the flu is fully resolved, especially if the il lness has been severe ? Fluids ? Drink enough flui ds so that you do not become dehydrated. One way to supercharger mechanic if you are drinking enough is to look at the color of your urine. Normally, urine should be li ght yellow to nearly colorless. If you are drinking enough, you should pass urine every three to five hours. ? Acetaminophen (such as Tylenol? and other brands) can reli skip fever, headache, and muscle aches. Aspirin, and medicines tyler t include aspirin (eg, bismuth subsalicylate; PeptoBismol), are not recommended for children under 18 because aspirin can lead to a serious disease called Jennyfer sy ndrome. ? Cough medicines are not usually helpful; cough usually res olves without treatment. We do not recommend cough or cold medicine for children under age six years. Antiviral treatment ? Antiviral medicines can be used to shelley at or prevent influenza. When used as a treatment, the medicine does not e liminate flu symptoms, although it can re duce the severity and duration of symptoms by about one day. Not every person with influenza needs an antiviral medicine; the decision is based upon your risk of developing complications of influenza. Antiviral treatment is most effective for season al influenza when it is taken within the first 48 hours of flu symptoms. Side effects ? Zanamivir and oseltamivir can cause mild side effects, including nausea and vomiting; zanamivir, which is inhaled, can cause difficulty breathing in some cases. Most people are able to continue the medicine despite the side effects. Antibiotics ? Antibiotics are NOT useful for shelley ating viral illnesses such as influenza. Antibiotics shoul d only used if there is a bacterial complication of the flu such as bacterial pneumonia, ear infecti on, or sinusitis. Antibiotics can cause side effects and lead to development of antibiotic resistance. Referring Provider: SELF [200] Allergies As of Date: 08/27/2019 (No Known Allergies) Date Reviewed: 08/27/2019 Reviewed by: Kusum ([facility]) Melida - Fully Assessed Reason for Visit: Cough [28] Cmt: cough and fever x 2 days Reason For Visit History Recorded Primary Visit Diagnosis:Influenza B [J10.1] Other Visit Diagnoses:Flu-like symptoms [R68.89] Sore throat [J02.9] Order(s):RAPID STREP TEST B/O [[id number]] Order #: [id number] INFLUENZA AANDB MOLECULAR (POC) [[id number]] Order #: [id number]. #:[id number] oseltamivir (TAMIFLU) 75 mg capsuleTake 1 capsule by mouth t wice daily for 5 days.Disp: 10 capsuleRfl: 0 Prescriptions as of 08/27/2019 Sig: LISINOPRIL 20 MG TABLET Take 1 tablet by mouth once d* FLUTICASONE PROPIONATE 50 MCG* Use 2 Sprays in each nostril * OSELTAMIVIR 75 MG CAPSULE Take 1 capsule by mouth twice* More... Problem List As Of Date 08/27/2019 Noted Resolved OBESITY NOS [E66.9] 12/06/2007 More... Vasectomy status [Z98.52] 12/26/2007 07/27/2010 More... Depressive disorder, not elsewhere classified [*06/16/2009 0 11/16/2018 Seasonal allergic rhinitis [J30.2] 07/27/2010 Essential hypertension [I10] 07/01/2017 Anxiety disorder [F41.9] 07/01/2017 11/16/2018 Other instructions from your clinician: ASSESSMENT/PLAN: 1. Influenza B - ICD9: 487.1, ICD10: J10.1 (primary diagnosi s) - OSELTAMIVIR 75 MG CAPSULE 2. Flu-like symptoms - ICD9: 780.99, ICD10: R68.89 - INFLUENZA AANDB MOLECULAR (POC) 3. Sore throat - ICD9: 462, ICD10: J02.9 - Rapid Strep negative in the office today - Discussed supportive care treatment with fluids, rest and analgesia. - The patient may also use warm salt water gargles, throat l ozenges and/or OTC throat spray as needed. - RAPID STREP TEST B/O - Follow-up with your PCP in 3-5 days if symptoms have not i mproved or sooner if symptoms worsen - Discussed red flags and need for immediate medical evaluat ion if any occur. - Discussed supportive care treatment with fluids, rest and analgesia. - Discussed expected course of illness Kusum Montez APRN.[facility] PATIENT INFO INFLUENZA INTRODUCTION Influenza (commonly called the flu) is a highly contagious i llness that can occur in children or adults of any age. It occurs more o ften in the winter months because people spend more time in close contac t with one another. The flu is spread easily from dtngbh-iv-viehdt by c oughing, sneezing, or touching surfaces. Every year, complications of the flu require more than 200,0 00 people in the [place] to be hospitalized. Serious illness is mor e likely in the very young, older adults, women, and people who have certain health problems such as asthma or other forms of lung diseas e. There have been several widespread flu outbreaks (called mckeon demics), which led to the deaths of many people worldwide. These outbreaks occurred when new strains of influenza viruses formed (often from pigs or birds) and humans became infected because they had no immunity to these viruses. FLU SYMPTOMS Symptoms of seasonal flu can vary from person to person, but usually include: ? Fever (temperature higher than 100?F or 37.8?C) ? Headache and muscle aches ? Fatigue ? Cough and sore throat may also be present People with the flu usually have a fever for two to five day s. This is different than fever caused by other upper respiratory virus es, which usually resolve after 24 to 48 hours. Some people have cold-like symptoms (runny nose, sore throat ) during the flu while others have fever and muscle aches. Flu symptoms u sually improve over two to five days, although the illness may last for a w cold [place] or more. Weakness and fatigue may persist for several weeks Flu complications ? Complications of influenza occur in some people; pneumonia is the most common complication. Pneumonia is a se rious infection of the lungs, and is more likely to occur in peopl e over the age of 65, people who live in meterman care facilities (nursing homes), and those with other illnesses such as diabetes or conditions af fecting the heart or lungs. FLU DIAGNOSIS Influenza is usually diagnosed based on symptoms (fever, cou gh and muscle aches). Lab testing for influenza is performed in certain ca ses, such as during a new influenza outbreak in a community. FLU TREATMENT When to seek help ? Most people with the flu recover within one to two weeks without treatment. However, serious complications of t he flu can occur. Call your doctor or nurse immediately if: ? You feel short of breath or have trouble breathing ? You have pain or pressure in your chest or stomach ? You have signs of being dehydrated, such as dizziness when standing or not passing urine ? You feel confused ? You cannot stop vomiting or you cannot drink enough fluids There are several groups of people who are at increased risk for flu complications. These include women, young children (<5 years of age, and especially <2 years of age), people ?65 years of ag e, and people with certain diseases such as chronic lung disease (such as asthma), heart disease, diabetes, immunosuppressing conditions (such as HIV infection or transplantation), and some other diseases. If you or your ch ild has flu symptoms and is at increased risk of flu complications, you should call your healthcare provider. Treat symptoms ? Treating the symptoms of influenza can help you to feel better, but will not make the flu go away faster. ? Rest until the flu is fully resolved, especially if the il lness has been severe ? Fluids ? Drink enough fluids so that you do not become deh ydrated. One way to supercharger mechanic if you are drinking enough is to look at the co omar of your urine. Normally, urine should be light yellow to nearly colo rless. If you are drinking enough, you should pass urine every three to fi ve hours. ? Acetaminophen (such as Tylenol? and other brands) can reli skip fever, headache, and muscle aches. Aspirin, and medicines that incl ude aspirin (eg, bismuth subsalicylate; PeptoBismol), are not recommende d for children under 18 because aspirin can lead to a serious disease levin d Jennyfer syndrome. ? Cough medicines are not usually helpful; cough usually res olves without treatment. We do not recommend cough or cold medicine for ch ildren under age six years. Antiviral treatment ? Antiviral medicines can be used to shelley at or prevent influenza. When used as a treatment, the medicine does not e liminate flu symptoms, although it can reduce the severity and duration o f symptoms by about one day. Not every person with influenza needs an anti viral medicine; the decision is based upon your risk of developing complications of influenza. Antiviral treatment is most effective for seasonal influenza when it is taken within the first 48 hours of flu symptoms. Side effects ? Zanamivir and oseltamivir can cause mild side effects, including nausea and vomiting; zanamivir, which is inhaled, can cause difficulty breathing in some cases. Most people are able to continue the medicine despite the side effects. Antibiotics ? Antibiotics are NOT useful for treating viral illnesses such as influenza. Antibiotics should only used if there is a arcadio terial complication of the flu such as bacterial pneumonia, ear inf ection, or sinusitis. Antibiotics can cause side effects and lead to de velopment of antibiotic resistance. Prescriptions ordered this encounter Disp Refills Start End OSELTAMIVIR 75 MG CAPSULE 10 c* 0 08/27/2019 09/01/2019 Route: ORAL Sig: Take 1 capsule by mouth twice daily for 5 days. Disposition: Return if symptoms worsen or fail to improve. Follow-up and Disposition History Recorded Letter Text Encounter Status:Closed by KUSUM MONTEZ on 08/27/19 progress on 2019-06 PROGRESS HNO ID: [id number] Normal 07-13-2019 [facility] Author: Lucía ([facility]) [facility] ([id number]) Service: ? Author Type: Nurse Practitioner Type: Progress Notes Filed: 07/13/2019 1:07 PM Note Text: CC Patient presents with: Blood Pressure HPI Sai Chase is a 44 year old male who presents to the [facility] for blood pressure. His visit today is for re-evaluation. States he is concerned about ~3 readings in the 180's/100's over the past few weeks. Last evening BP was 188/123 and he self treated with an extr a 10 mg of lisinopril. Patient was last seen in the office approximatel y 6 months ago. Medication changes: No Taking all medications as prescribed: Yes Side effects: No Home BP's: Yes- usually daily. Generally 130's/80's but salazar ve been higher in the last couple weeks. Admits to frequent, tension type headaches and a decrease in visual acuity- he wears glasses and follows with an eye doctor iesha taveras- has an upcoming appt. in the next few weeks. Denies changes in pe ripheral vision. Denies: chest pain, palpitations, dyspnea and peripheral teresa ma. Last 4 Encounter BP Readings: Date: BP: 07/13/2019 140/80 12/14/2018 118/68 11/16/2018 149/92 03/06/2018 120/86 Exercise: denies regular aerobic exercise. Diet: Watch for salt, fat, cholesterol: No. Alcohol intake: Yes- regularly on the weekends. Smoking: No Frequent NSAID use: Yes- admits to taking IBU daily Decongestants: No Thyroid disorders? No Sleep disorders? No REVIEW OF SYSTEMS See HPI PAST MEDICAL HISTORY Diagnosis Date - Anxiety disorder 07/01/2017 - Depressive disorder, not elsewhere classified 06/16/2009 - OBESITY NOS 12/06/2007 - Seasonal allergic rhinitis 07/27/2010 - Vasectomy status 12/26/2007 PAST SURGICAL HISTORY Procedure Laterality Date - VASECTOMY 1999 ALLERGIES Patient has no known allergies. MEDICATIONS lisinopril (PRINIVIL) 10 mg tablet Take 1 tablet by mouth on ce daily. fluticasone (FLONASE) 50 mcg/actuation nasal spray Use 2 Spr ays in each nostril once daily. FAMILY HISTORY Problem Relation Age of Onset - None Mother - None Father - None Sister Social History Tobacco Use - Smoking status: Never Smoker - Smokeless tobacco: Never Used Substance Use Topics - Alcohol use: Yes Alcohol/week: 2.5 standard drinks Types: 1 Glasses of Wine (5oz) per week - Drug use: No PHYSICAL EXAM BP 140/80 Pulse 83 Resp 16 Wt 97.1 kg (214 lb) SpO2 100% General Appearance: well appearing, in no acute distress, al ert, overweight Lungs: lungs clear to auscultation. No wheezing, rhonchi, ra les Heart: RRR without murmur, gallop, or rubs. No ectopy ASSESSMENT/PLAN: 1. (I10) Essential hypertension Comment: - Suboptimal control Plan: - Increase lisinopril (ZESTRIL, PRINIVIL) 20 mg tablet - Recommended regular aerobic exercise - Recommended limiting dietary intake of salt, cholesterol a nd fats - Discussed discontinuing daily IBU use and the affects of I BU on BP and potential for rebound headaches - Keep schedule appt. with eye doctor to discuss changes in visual acuity - F/U in 1 month Prescription instructions reviewed with patient as applicabl e. Potential red flag symptoms discussed with the patient. Reviewed appro priate action plan to take if red flag symptoms occur. Patient agreeable t o treatment plan Lucía Munguia APRN.CNP cnov on 2019-07-13 CNOV Office Visit (INTMWS) Normal 07-13-19 [facility] SAI CHASE ([id number]) 1975 [facility] Date Time Provider Department ([id number]) 07/13/19 10:00 AM LUCÍA MUNGUIA ([place]) INTMWS During your visit today, we recorded the following informati on about you: Pulse Respiration Blood pressure Weight 83/minute 16/minute 136/82 97.1 kg Lucía Munguia APRN.CNP 07/13/2019 1:07 PM Signed CC Patient presents with: Blood Pressure HPI Sai Abbey Chase is a 44 year old male who presents to the office for blood pressure. His visit today is for re-evaluation. States he is concerned about ~3 readings in the 180's/100's over the past few weeks. Last ev ening BP was 188/123 and he self treated with an extra 10 mg of lisinopril. Patient was last seen in the office approximately 6 months ago. Medication changes: No Taking all medications as prescribed: Yes Side effects: No Home BP's: Yes- usually daily. Generally 130's /80's but have been higher in the last couple weeks. Admits to frequent, tension type headach es and a decrease in visual acuity- he wears glasses and follows wi th an eye doctor annually- has an upcoming appt. in the next few weeks. Denies changes in peripheral vision. Denies: chest pain, palpitations, dyspnea and peripheral teresa ma. Last 4 Encounter BP Readings: Date: BP: 07/13/2019 140/80 12/14/2018 118/68 11/16/2018 149/92 03/06/2018 120/86 Exercise: denies regular aerobic exercise. Diet: Watch for salt, fat, cholesterol: No. Alco hol intake: Yes- regularly on the weekends. Smoking: No Frequent NSAID use: Yes- admits to taking IBU daily Decongestants: No Thyroid disorders? No Sleep disorders? No REVIEW OF SYSTEMS See HPI PAST MEDICAL HISTORY Diagnosis Date - Anxiety disorder 07/01/2017 - Depressive disorder, not elsewhere classified 06/16/2009 - OBESITY NOS 12/06/2007 - Seasonal allergic rhinitis 07/27/2010 - Vasectomy status 12/26/2007 PAST SURGICAL HISTORY Procedure Laterality Date - VASECTOMY 1999 ALLERGIES Patient has no known allergies. MEDICATIONS lisinopril (PRINIVIL) 10 mg tablet Take 1 tablet by mouth on ce daily. fluticasone (FLONASE) 50 mcg /actuation nasal spray Use 2 Sprays in each nostril once daily. FAMILY HISTORY Problem Relation Age of Onset - None Mother - None Father - None Sister Social History Tobacco Use - Smoking status: Never Smoker - Smokeless tobacco: Never Used Substance Use Topics - Alcohol use: Yes Alcohol/week: 2.5 standard drinks Types: 1 Glasses of Wine (5oz) per week - Drug use: No PHYSICAL EXAM BP 140/80 Pulse 83 Resp 16 Wt 97.1 kg (214 lb) SpO2 100% General Appearance: well appearing, in no acute distress, alert, overweight Lungs: lungs clear to auscultation. No wheezing, rhonchi, ra les Heart: RRR without murmur, gallop, or rubs. No ectopy ASSESSMENT/PLAN: 1. (I10) Essential hypertension Comment: - Suboptimal control Plan: - Increase lisinopril (ZESTRIL, PRINIVIL) 20 mg tablet - Recommended regular aerobic exercise - Recommended limiting dietary intake of salt, cholesterol a nd fats - Discussed discontinuing daily IBU use and the affects of I BU on BP and potential for rebound headaches - Keep schedule appt. with eye doctor to discuss changes in visual acuity - F/U in 1 month Prescription instructions reviewed with patient as rosa licable. Potential red flag symptoms discussed with the patient. Review ed appropriate action plan to take if red flag symptoms occur. Patient agreeable to treatm ent plan Lucía Munguia APRN.NEUROPSYCHOLOGY DIVISION CHIEF Referring Provider: SELF [[id number]] Allergies As of Date: 07/13/2019 (No Known Allergies) Date Reviewed: 07/13/2019 Reviewed by: Wilmer Balderas Cma - Fully Assessed Reason for Visit: Blood Pressure [15] Visit Diagnosis:Essential hypertension [I10] Order(s):lisinopril (ZESTRIL, PRINIVIL) 20 mg tabletTake 1 t ablet by mouth once daily.Disp: 30 tabletRfl: 5 Prescriptions as of 07/13/2019 Sig: LISINOPRIL 20 MG TABLET Take 1 tablet by mouth once d* FLUTICASONE PROPIONATE 50 MCG* Use 2 Sprays in each nostril * More... Problem List As Of Date 07/13/2019 Noted Resolved OBESITY NOS [E66.9] 12/06/2007 More... Vasectomy status [Z98.52] 12/26/2007 07/27/2010 More... Depressive disorder, not elsewhere classified [*06/16/2009 0 11/16/2018 Seasonal allergic rhinitis [J30.2] 07/27/2010 Essential hypertension [I10] 07/01/2017 Anxiety disorder [F41.9] 07/01/2017 11/16/2018 Prescriptions ordered this encounter Disp Refills Start End LISINOPRIL 20 MG TABLET 30 t* 5 07/13/2019 Route: ORAL Sig: Take 1 tablet by mouth once daily. Medications Discontinued During This Encounter lisinopril (PRINIVIL) 10 mg tablet 30 t* 1 05/22/2019 020 Route: ORAL Sig: Take 1 tablet by mouth once daily. Disc: Reason for discontinue is not on file. Encounter Status:Closed by LUCÍA MUNGUIA CNP on 07/13/19 cnco on 2019-07-13 CNCO Letter Text Normal 07-13-2019 [facility] ([id number]) obsolete on 2019-04 OBSOLETE Refill (INTMWS) Normal 05-21-2019 Bertin byrd SAI Leroy ([id number]) 1975 [facility] Date Time Provider Department ([id number]) 05/21/19 FINN LALA INTMWS During your visit today, we recorded the following informati on about you: Trini Noriega RN 05/21/2019 1:41 PM Signed Patient has been identified by name and date of : Yes Pharmacy phones for refill(s): Pending Prescriptions Disp Refills LISINOPRIL 10 MG TABLET 30 tablet 5 Sig: Take 1 tablet by mouth once daily. ARNEL: No Date of last office visit with pcp: 11-16-18. Next appt:none Date of last office visit in primary care: 12-14-18. Next rosa t: none Last 2 Encounter Wt Readings: Date: Wt: 12/14/2018 93.9 kg (207 lb) 11/16/2018 94.3 kg (208 lb) Previous labs/tests for medication: Bloo d Pressure: No results found for: BUN, NA Last 1 Encounter BP Readings: Date: BP: 12/14/2018 118/68 Blood Counts: No results found for: WBC, RBC, HCT, HB, PLT Liver Function: No results found for: ALT, AST Please advise. Thank you. Trini Lala MD 05/22/2019 8:20 AM Signed Patient's request for medication is as follows Signed Prescriptions Disp Refills lisinopril (PRINIVIL) 10 mg tablet 30 tablet 1 Sig: Take 1 tablet by mouth once daily. ARNEL: No Authorizing Provider: FINN LALA Reschedule APPOINTMENT. Finn Lala MD Allergies As of Date: 05/21/2019 (No Known Allergies) Date Reviewed: 12/14/2018 Reviewed by: Wilmer Balderas [facility] - Fully Assessed Reason for Visit: Refill Request [94] Visit Diagnosis:Essential hypertension [I10] Order(s):lisinopril (PRINIVIL) 10 mg tabletTake 1 tablet by mouth once daily.Disp: 30 tabletRfl: 1 Prescriptions as of 05/21/2019 Sig: LISINOPRIL 10 MG TABLET Take 1 tablet by mouth once d* FLUTICASONE PROPIONATE 50 MCG* Use 2 Sprays in each nostril * More... Problem List As Of Date 05/21/2019 Noted Resolved OBESITY NOS [E66.9] 12/06/2007 More... Vasectomy status [Z98.52] 12/26/2007 07/27/2010 More... Depressive disorder, not elsewhere classified [*06/16/2009 0 11/16/2018 Seasonal allergic rhinitis [J30.2] 07/27/2010 Essential hypertension [I10] 07/01/2017 Anxiety disorder [F41.9] 07/01/2017 11/16/2018 Prescriptions ordered this encounter Disp Refills Start End LISINOPRIL 10 MG TABLET 30 t* 1 05/22/2019 Route: ORAL Sig: Take 1 tablet by mouth once daily. Medications Discontinued During This Encounter lisinopril (PRINIVIL) 10 mg tablet 30 t* 5 11/16/2018 019 Route: ORAL Sig: Take 1 tablet by mouth once daily. Disc: Reason for discontinue is not on file. Encounter Status:Closed by WILMER BALDERAS CMA on 05/22/19 Encounters Date Type Reason Provider Location 12-19-2019 - Refill Essential hypertension Finn Lala [facility] 12-19-2019 Mobile Comment: Refill Request; Refill Reque st Plan of Treatment Plan Description Date Location LIPID SCREEN LIPID SCREEN 12-20-2024 [facility] ([id number]) DIABETES SCREEN DIABETES SCREEN 12-20-2022 [facility] ([id number]) ANNUAL PCP TEAM CHRONIC ANNUAL PCP TEAM CHRONIC 12-20-2020 [facility] DISEASE VISIT DISEASE VISIT ([id number]) BP CONTROLLED (<130/80) BP CONTROLLED (<130/80) 12-20-2020 [facility] ([id number]) INFLUENZA (#1) INFLUENZA (#1) 2020 [facility] ([id number]) DTAP,TDAP,TD (1 - Tdap) DTAP,TDAP,TD (1 - Tdap) 02-05-1992 [facility] ([id number]) no information [facility] ([id number]) Payers Payer Name Policy Number Location ANTHEM [id number] [facility] (54 589) VISION [employer] PLAN [id number] [facility] (85 263) The following information is from the original human readable contentNo Payer Records Found Social History Type Social History Description Date Locat ion Tobacco smoking status Never smoker 08-27-2019 [facility] ([id number]) NHIS Tobacco use and exposure Never used 08-27-2019 [facility] ([id number]) Alcohol intake Current drinker of alcohol 08-27-2019 [facility] ([id number]) (finding) Alcohol intake 08-27-2019 [facility] ([id number]) Sex Assigned At Not on file [facility] ([id number]) Exposure to SARS-CoV-[address] [facility] ([id number]) (event) The following information is from the original human readable contentNo Social History Records Found History of Past Illness Problem Noted Date Resolved Date Anxiety disorder 07/01/2017 11/16/2018 Depressive disorder, not elsewhere classified 06/16/2009 11/16/2018 Vasectomy status 12/26/2007 07/27/2010 Overview: Sperm test 01-01 showed no sperm Assessments Diagnosis Essential hypertension Unspecified essential hypertension Summary Purpose Family History No Family History Records Found Advance Directives No Advanced Directives Records Found Additional Source Comments FOR RECORDS PERTAINING TO PATIENTS WHO ARE OR HAVE BEEN ENROLLED IN A CHEMICAL DEPENDENCY/SUBSTANCE ABUSE PROGRAM, SOME INFORMATION MAY BE OMITTED. This clinical summary was aggregated from multiple sources. Caution should be exercised in using it in the provision of clinical care. This summary normalizes information from multiple sources, and as a consequence, information in this document may materially changethe coding, format and clinical context of patient data. In addition, data may be omittedin some cases. CLINICAL DECISIONS SHOULD BE BASED ON THE PRIMARY CLINICAL RECORDS. [facility] provides no warranty or guarantee of the accuracy or completeness of information in this document. UNRECOGNIZED CONTENT PROVIDED BELOW FOR UNRECOGNIZED SECTION Source Comments In the event this information is protected by the Federal Confidentiality of Alcohol and Drug Abuse Patient Records regulations: The Federal rules restrict any use of the information to criminally investigate or prosecute any alcohol or drug abuse patient.[facility] UNRECOGNIZED CONTENT PROVIDED BELOW FOR UNRECOGNIZED SECTION Reason for Visit Reason Onset Date Comments Refill Request 12/19/2019 Refill Request 04/10/2020 UNRECOGNIZED CONTENT PROVIDED BELOW FOR UNRECOGNIZED SECTION Miscellaneous Notes Telephone Encounter - Rosie Hui LPN - 04/10/2020 4:44 PM EDTApt booked. Rosie Hui LPN Telephone Encounter - Fani Farrar - 12/20/2019 9:36 AM EDT2 nd attempt left message to return call. Please assist in scheduling Patient overdue for follow-up.Letter also mailed out. elephone Encounter - Caity South - 12/19/2019 3:40 PM EDT1st attempt to schedule follow up. LM. Caity South December 19, 2019 Telephone Encounter - Wilmer Balderas Cma - 12/19/2019 3:15 PM EDT The following approved medication requests have been transmitted electronically. Signed Prescriptions Disp Refills lisinopril (ZESTRIL, PRINIVIL) 20 mg tablet 30 tablet 0 Sig: Take 1 tablet by mouth once daily. ARNEL: No Authorizing Provider: LUCÍA MUNGUIA) Wilmer Balderas Cma Please assist with scheduling per below. Thank you. elephone Encounter - Lucía Munguia) - 12/19/2019 2:40 PM EDTPatient overdue for follow-up Lucía Munguia APRN.CNP elephone Encounter - Rosie Hui LPN - 12/19/2019 11:48 AM EDT Patient has been identified by name and date of : Yes Pharmacy phones for refill(s): Pending Prescriptions Disp Refills LISINOPRIL 20 MG TABLET 30 tablet 5 Sig: Take 1 tablet by mouth once daily. ARNEL: No Date of last office visit in primary care: 07/13/19 Last 2 Encounter Wt Readings: Date: Wt: 08/27/2019 96.9 kg (213 lb 9.6 oz) 07/13/2019 97.1 kg (214 lb) Previous labs/tests for medication: Blood Pressure: No results found for: BUN, NA Last 1 Encounter BP Readings: Date: BP: 08/27/2019 110/78 Please advise. Thank you. Rosie Hui LPN documented in this encounter UNRECOGNIZED CONTENT PROVIDED BELOW FOR UNRECOGNIZED SECTION No Status Records Found UNRECOGNIZED CONTENT PROVIDED BELOW FOR UNRECOGNIZED SECTION INFORMATION SOURCE DATE CREATED AUTHOR AUTHOR'S ORGANIZATIO N 04/11/2020 [facility] Bertin byrd
--- OUTSIDE RECORDS SUMMARY | 2020-04-13 12:58 | XMS RPT_ITS | CCD ---
:1975 External Reference #:[id number] Author Organization [facility] Care Team Providers Name Role Phone Taylor Lala Primary Care Provider Medications Medication Name Sig Date Prescriber Location fluticasone fluticasone (FLONASE) 11-16-2018 Finn Lala [facility] 50 mcg/actuation Finn Lala (4419 5) nasal spray Indications: Acute non-recurrent frontal sinusitis Use 2 Sprays in each nostril once daily. 1 Bottle 2 11/16/2018 Active Comment: Use 2 Sprays in each nostril once daily. Lisinopril lisinopril (ZESTRIL, 07-13-2019 - Lucía ([facility] PRINIVIL) 20 mg tablet 12-21-2019 Older (4419 5) Indications: Essential hypertension Take 1 tablet by mouth once daily. 30 tablet 0 12/19/2019 12/21/2019 Discontinued Comment: Take 1 tablet by mouth once daily. Problems Category Problem Name Status Date Location Essential hypertension Essential hypertension Active 07-01-19 - [facility] (30807) Other nutritional; Obesity Active 12-06-2007 - [facility] endocrine; and (20027) metabolic disorders Other upper respiratory Seasonal allergic Active 07-27-2010 - [facility] disease rhinitis (43095) Results Result Name Value Range Unit Interpretation Flag [facility] (INTMWS) Normal 12-24-2019 [facility] NADAYSAI Douglass [place] ([id number]) 1975 [facility] Date Time Provider Department (03208) 12/24/19 FINN LALA During your visit today, [...] Allergies) Date Reviewed: 08/27/2019 Reviewed by: [facility] [place] - Fully Assessed Reason for Visit: [...] Status:Closed by ABBY SALOMON LPN on 01/17/20 [facility] Telephone (FAMPWS) Normal 12-24-2019 [facility] SAI CHASE ([id number]) 1975 [facility] Date Time Provider Department (55471) 12/24/19 FINN LALA During your visit today, [...] Allergies) Date Reviewed: 08/27/2019 Reviewed by: Kusum ([facility]) [place] - Fully Assessed Reason for Visit: [...] 12/24/19 progress on 2019-11 PROGRESS HNO ID: [id number] Normal 12-21-2019 [facility] Author: Finn Lala [facility] ([id number]) Service: ? Author Type: Physician Type: Progress Notes Filed: 12/21/2019 12:55 PM Note Text: This note was created using VisiQuateriter. Subjective Patient presents with: ER F/U Hypertension [...] Cholesterol [Mass/Vol] 140 <200 mg/dL Normal 020 [facility] (45531) Comment: Result Comment: <200 mg/dL, Desirable 200-239 mg/dL, Borderline hi gh >239 mg/dL, High Performed By: #### CMP, CBC, LIPNF, AHCV, HIV12C ####[facility] [address] [place], [place] [phone] Cholesterol in 1.88 <2.54 mg/dL Normal 12-21-2019 [facility] LDL/Cholesterol in HDL [Counts Include [facility] (32207) ratio] Comment: Result Comment: Reference: 1. National Cholesterol Educ ation Program ATP III Guideline At-A-Glance Quick Desk Reference: National Heart, Lung, and Blood [place]. National Institutes of Health. 2001: NIH Publication No. 01-3305. 2. An International Atherosc lerosis Society position paper: global recommendations for the management of dyslipidemia: executive summary, Atherosclerosis. 2014: 232(2):410-413. Performed By: #### CMP, CBC, LIPNF, AHCV, HIV12C ####[facility] [address] [place], [place] [phone] Cholesterol.total/Cholesterol in 3.50 <5.10 mg/dL Normal 12-21-2019 [facility] HDL [Mass ratio] [facility] (30959) Comment: Performed By: #### CMP, CBC, LIPNF, AHCV, HIV12C ####[facility] [place], [place] [phone] HDL Cholesterol, NF 40 >39 mg/dL Normal 12-21-2019 [facility] (45989) Comment: Result Comment: 40-59 mg/dL, Acceptable >59 mg/dL, High: Negative ri sk factor for coronary heart disease <40 mg/dL, Low: Positive ris k factor for coronary heart disease Performed By: #### CMP, CBC, LIPNF, AHCV, HIV12C ####[facility] [place], [place] [phone] LDL Cholesterol, NF 75 <100 mg/dL Normal 12-21-2019 [facility] (50554) Comment: Result Comment: <100 mg/dL, Optimal 100-129 mg/dL, Near optimal/ above optimal 130-159 mg/dL, Borderline hi gh 160-189 mg/dL, High >189 mg/dL, Very high Secondary prevention optimal LDL Cholesterol levels are recommended to be < 70 mg/dL Performed By: #### CMP, CBC, LIPNF, AHCV, HIV12C ####[facility] [address] [place], [place] [phone] Non HDL Chol, NF 100 <130 mg/dL Normal 12-21-2019 [facility] (47788) Comment: Result Comment: <130 mg/dL, Optimal 130-159 mg/dL, Near optimal/ above optimal 160-189 mg/dL, Borderline hi gh 190-219 mg/dL, High >219 mg/dL, Very high Secondary prevention optimal non HDL Cholesterol levels are recommended to be < 100 mg/dL Performed By: #### CMP, CBC, LIPNF, AHCV, HIV12C ####[facility] [address] [place], [place] [phone] Triglycerides, NF 126 <150 mg/dL Normal 12-21-2019 [facility] (55467) Comment: Result Comment: <150 mg/dL, Normal 150-199 mg/dL, Borderline hi gh 200-499 mg/dL, High >499 mg/dL, Very high Performed By: #### CMP, CBC, LIPNF, AHCV, HIV12C ####[facility] [place], [place] [phone] VLDL Cholesterol, NF 25 <30 mg/dL Normal 0 [facility] (14108) Comment: Performed By: #### CMP, CBC, LIPNF, AHCV, HIV12C ####[place] [address] [place], [place] [phone] [id number] ag +hiv12 ab on 2019-12-21 HIV 12 Ag/Ab Non Reactive Non Reactive Normal 12-21-2019 [facility] (02280) Comment: Performed By: #### CMP, CBC, LIPNF, AHCV, HIV12C ####[place] [address] [place], [place] [phone] HIV-1/2 Antibody Normal 12-21-[address] [facility] (49077) Comment: Result Comment: Test Not Ind icated Negative No evidence of HIV-1 or HIV- 2 infection. Should recent infection be suspected, repeat testing may be considered 2-3 weeks after this draw. HIV Information: [place] Rev. C ode 3701.243(E): This information has [...] By: #### CMP, CBC, LIPNF, AHCV, HIV12C ####[facility] [place], [place] [phone] hepatitis c ab ia o n 2019-12-21 Hepatitis C Ab IA Negative Negative Normal 12-21-2019 [facility] (72069) Comment: Performed By: #### CMP, CBC, LIPNF, AHCV, HIV12C ####[place] [address] [place], [place] [phone] comp metabolic panel on 2019-12-21 Albumin [Mass/Vol] 4.7 3.9-4.9 g/dL Normal 12-21-2019 [facility] (32536) Comment: Performed By: #### CMP, CBC, LIPNF, AHCV, HIV12C ####[place] [address] [place], [place] [phone] ALP [Catalytic activity/Vol] 58 38-113 U/L Normal 0 12-21-2019 [facility] (14330) Comment: Performed By: #### CMP, CBC, LIPNF, AHCV, HIV12C ####[facility] [place], [place] [phone] ALT [Catalytic activity/Vol] 35 10-54 U/L Normal 0 12-21-2019 [facility] (76212) Comment: Performed By: #### CMP, CBC, LIPNF, AHCV, HIV12C ####[facility] [place], [place] [phone] Anion gap [Moles/Vol] 11 9-18 mmol/L Normal 12-21-19 [facility] (15683) Comment: Performed By: #### CMP, CBC, LIPNF, AHCV, HIV12C ####[place] [address] [place], [place] [phone] AST [Catalytic activity/Vol] 29 14-40 U/L Normal 0 12-21-2019 [facility] (45473) Comment: Performed By: #### CMP, CBC, LIPNF, AHCV, HIV12C ####[facility] [place], [place] [phone] Bilirubin [Mass/Vol] 0.4 0.2-1.3 mg/dL Normal 0 [facility] (19738) Comment: Performed By: #### CMP, CBC, LIPNF, AHCV, HIV12C ####[place] [address] [place] [phone] Calcium [Mass/Vol] 10.1 8.5-10.2 mg/dL Normal 12-21-2019 [facility] (29704) Comment: Performed By: #### CMP, CBC, LIPNF, AHCV, HIV12C ####[place] [address] [place], [place] [phone] Chloride [Moles/Vol] 98 97-105 mmol/L Normal 0 [facility] (11684) Comment: Performed By: #### CMP, CBC, LIPNF, AHCV, HIV12C ####[place] [address] [place], [place] [phone] CO2 [Moles/Vol] 26 22-30 mmol/L Normal 12-21-2019 [facility] (17638) Comment: Performed By: #### CMP, CBC, LIPNF, AHCV, HIV12C ####[place] [address] [place], [place] [phone] Creatinine [Mass/Vol] 1.08 0.73-1.22 mg/dL Normal 12-21-19 20 [facility] (80206) Comment: Performed By: #### CMP, CBC, LIPNF, AHCV, HIV12C ####[place] [address] [place], [place] [phone] eGFR- Amer. >60 Normal 12-21-2019 [facility] (32847) Comment: Performed By: #### CMP, CBC, LIPNF, AHCV, HIV12C ####[place] [address] [place], [place] [phone] GFR/1.73 sq M predicted >60 mL/min/{1.73_m2} Normal 12-21-2019 [facility] among non-blacks MDRD [facility] (51337) (S/P/Bld) [Vol rate/Area] Comment: Result Comment: eGFR [...] By: #### CMP, CBC, LIPNF, AHCV, HIV12C ####[facility] [address] [place], [place] [phone] Glucose [Mass/Vol] 95 74-99 mg/dL Normal 12-21-2019 [facility] (37017) Comment: Result Comment: The [place] Diabetes Association (ADA) provides guidance for cutoff [...] for diagnosis of diabetes. Reference: Standards of [facility] Care in Diabetes 2016, [place] Diabetes Association. Diabetes Care. 2016.39(Suppl 1). Performed By: #### CMP, CBC, LIPNF, AHCV, HIV12C ####[facility] [address] [place], [place] [phone] Potassium [Moles/Vol] 4.0 3.7-5.1 mmol/L Normal 12-21-19 20 [facility] (78037) Comment: Performed By: #### CMP, CBC, LIPNF, AHCV, HIV12C ####[facility] [address] [place], [place] [phone] Protein [Mass/Vol] 7.7 6.3-8.0 g/dL Normal 12-21-2019 [facility] (20017) Comment: Performed By: #### CMP, CBC, LIPNF, AHCV, HIV12C ####[facility] [address] [place], [place] [phone] Sodium [Moles/Vol] 135 136-144 mmol/L Low 12-21-2019 [facility] (01646) Comment: Performed By: #### CMP, CBC, LIPNF, AHCV, HIV12C ####[facility] [address] [place], [place] [phone] Urea nitrogen [Mass/Vol] 18 9-24 mg/dL Normal 12-20 [facility] (53495) Comment: Performed By: #### CMP, CBC, LIPNF, AHCV, HIV12C ####[facility] [address] [place], [place] [phone] cnov on 2019-12-21 CNOV Office Visit (INTMWS) Normal 12-21-[address] [place] [address] SAI Leroy ([id number]) 1975 [facility] Date Time Provider Department (14447) 12/21/19 11:20 AM FINN LALA INTMWS During your visit today, we recorded the following informati on about you: Temperature Pulse Respiration Blood pressure 97.8 degrees 80/minute 16/minute 118/60 Weight 95.7 kg Finn Lala MD 12/21/2019 12:55 PM Signed This note was created using VisiQuateriter. Subjective Patient presents with: ER F/U Hypertension [...] Allergies) Date Reviewed: 08/27/2019 Reviewed by: Kusum ([facility]) [place] - Fully Assessed Reason for Visit: [...] 30 tabletRfl: 0 CBC [SQCBC] Order #: [id number] FUTURE COMP METABOLIC PANEL [SQCMP] Order #: [id number] FUTURE LIPID PANEL, NONFASTING [SQLIPNF] Order #: [id number] FUTURE HIV 1 2 COMBO(AG/AB),WITH REFLEX TO DIFFERENTIATION [SQHIV12 ] Order #: [id number] FUTURE HEP C AB IA BLOOD [SQAHCV] Order #: [id number] FUTURE Prescriptions as of 12/21/2019 Sig: LISINOPRIL [...] 2019-12-21 Absolute nRBC <0.01 <0.01 Normal 12-21-2019 [facility] (88317) Comment: Performed By: #### CMP, CBC, LIPNF, AHCV, HIV12C ####[facility] [address] [place], [place] [phone] Erythrocyte distribution 12.0 11.5-15.0 % Normal 12-20 [facility] width (RBC) [Ratio] [facility] (82855) Comment: Performed By: #### CMP, CBC, LIPNF, AHCV, HIV12C ####[facility] [place], [place] [phone] Hematocrit (Bld) [Volume 43.9 39.0-51.0 % Normal 12-20 [facility] fraction] [facility] (28420) Comment: Performed By: #### CMP, CBC, LIPNF, AHCV, HIV12C ####[place] [address] [place], [place] [phone] Hemoglobin (Bld) 14.4 13.0-17.0 g/dL Normal 12-21-2019 [facility] [Mass/Vol] [facility] (16618) Comment: Performed By: #### CMP, CBC, LIPNF, AHCV, HIV12C ####[facility] [place], [place] [phone] MCH (RBC) [Entitic mass] 30.3 26.0-34.0 pG Normal 12-20 [facility] (96885) Comment: Performed By: #### CMP, CBC, LIPNF, AHCV, HIV12C ####[facility] [place], [place] [phone] MCHC (RBC) [Mass/Vol] 32.8 30.5-36.0 g/dL Normal 12-21-19 20 [facility] (34213) Comment: Performed By: #### CMP, CBC, LIPNF, AHCV, HIV12C ####[place] [address] [place], [place] [phone] MCV (RBC) [Entitic vol] 92.2 80.0-100.0 fL Normal 12-20 [facility] (39401) Comment: Performed By: #### CMP, CBC, LIPNF, AHCV, HIV12C ####[place] [address] [place], [place] [phone] Platelet mean volume 9.9 9.0-12.7 fL Normal 0 [facility] (Bld) [Entitic vol] (73093) Comment: Performed By: #### CMP, CBC, LIPNF, AHCV, HIV12C ####[facility] [place], [place] [phone] Platelets (Bld) [#/Vol] 314 150-400 k/uL Normal 2019 [facility] (51239) Comment: Performed By: #### CMP, CBC, LIPNF, AHCV, HIV12C ####[facility] [place], [place] [phone] RBC (Bld) [#/Vol] 4.76 4.20-6.00 m/uL Normal 12-21-2019 [facility] (44467) Comment: Performed By: #### CMP, CBC, LIPNF, AHCV, HIV12C ####[facility] [place], [place] [phone] WBC (Bld) [#/Vol] 6.19 3.70-11.00 k/uL Normal 12-21-2019 [facility] (64817) Comment: Performed By: #### CMP, CBC, LIPNF, AHCV, HIV12C ####[place] [address] [place], [place] [phone] cnco on 2019-12-20 CNCO Letter Text Normal 12-20-2019 [facility] (64530) obsolete on 2019-11 OBSOLETE Refill (INTMWS) Normal 12-19-2019 [facility] RIC CHASE ([id number]) 1975 [facility] Date Time Provider Department (96507) 12/19/19 FINN LALA During your visit today, [...] 0 progress on 2019-08 PROGRESS HNO ID: [id number] Normal 08-27-2019 [facility] Author: Kusum ([facility]) AbigailDemetrio [facility] (57179) Service: ? Author Type: Nurse Practitioner Type: [...] 2019-08-27 CNOV Office Visit (UCWSTR) Normal 08-27-[address] [place] [address] Mine CHASESAI Potter ([id number]) 1975 [facility] Date Time Provider Department (18364) 08/27/19 9:15 AM KUSUM MONTEZ (TIERRA) WSTR [...] another. The flu is spread easily from dyfkuf-bu-udxtrj by co ughing, sneezing, or touching surfaces. [...] age of 65, people who live in extermination supervisor care facilities (nursing homes ), and those [...] do not become dehydrated. One way to iron cutter if you are drinking enough is to [...] Allergies) Date Reviewed: 08/27/2019 Reviewed by: Kusum ([facility]) [place] - Fully Assessed Reason for Visit: Cough [28] Cmt: cough and fever x 2 days Reason For Visit History Recorded Primary Visit Diagnosis:Influenza B [J10.1] Other Visit Diagnoses:Flu-like symptoms [R68.89] Sore throat [J02.9] Order(s):RAPID STREP TEST B/O [9298120] Order #: [id number] INFLUENZA AANDB MOLECULAR (POC) [1996594] Order #: [id number]. #:[id number] oseltamivir (TAMIFLU) 75 mg capsuleTake 1 capsule [...] Discussed expected course of illness Kusum Montez APRN.[facility] PATIENT INFO INFLUENZA INTRODUCTION Influenza (commonly called the flu) is a highly contagious i llness that can occur in children or adults of any age. It occurs more o ften in the winter months because people spend more time in close contac t with one another. The flu is spread easily from zxqfku-yi-xqysar by c oughing, sneezing, or touching surfaces. [...] the illness may last for a w [place] or more. Weakness and fatigue may persist for several weeks Flu complications ? Complications of influenza occur in some people; pneumonia is the most common complication. Pneumonia is a se rious infection of the lungs, and is more likely to occur in peopl e over the age of 65, people who live in extermination supervisor care facilities (nursing homes), and those with [...] not become deh ydrated. One way to iron cutter if you are drinking enough is to [...] 08/27/19 progress on 2019-06 PROGRESS HNO ID: [id number] Normal 07-13-2019 [facility] Author: Lucía (Sales And Merchandising Representative) [facility] (63679) Service: ? Author Type: Nurse Practitioner Type: Progress Notes Filed: 07/13/2019 1:07 PM Note Text: CC Patient presents with: Blood Pressure HPI Sai Chase is a 44 year old male who presents to the [facility] for blood pressure. 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 OPERATOR Referring Provider: SELF [200] Allergies As of [...] CNCO Letter Text Normal 07-13-2019 Loan dee [facility] (38616) obsolete on 2019-04 OBSOLETE Refill (INTMWS) Normal 05-21-2019 Bertin byrd SAI Leroy ([id number]) 1975 [facility] Date Time Provider Department (35550) 05/21/19 FINN LALA INTMWS During your visit [...] Date Reviewed: 12/14/2018 Reviewed by: Wilmer Balderas [facility] - Fully Assessed Reason for Visit: Refill [...] Essential hypertension Finn Lala Internal [facility] 12-19-2019 [place] Comment: Refill Request; Refill Reque st Plan of Treatment Plan Description Date Location LIPID SCREEN LIPID SCREEN 12-20-2024 [facility] (42557) DIABETES SCREEN DIABETES SCREEN 12-20-2022 [facility] (91743) ANNUAL PCP TEAM CHRONIC ANNUAL PCP TEAM CHRONIC 12-20-2020 [facility] DISEASE VISIT DISEASE VISIT (67169) BP CONTROLLED (<130/80) BP CONTROLLED (<130/80) 12-20-2020 [facility] (22250) INFLUENZA (#1) INFLUENZA (#1) 2020 [facility] (18392) DTAP,TDAP,TD (1 - Tdap) DTAP,TDAP,TD (1 - Tdap) 02-05-1992 [facility] (69835) no information [facility] (92419) Payers Payer Name Policy Number Location ANTHEM [id number] [facility] (70 158) VISION SERVICE PLAN [id number] [facility] (43 163) The following information is from the original human readable contentNo Payer Records Found Social History Type Social History Description Date Locat ion Tobacco smoking status Never smoker 08-27-2019 [facility] (22511) NHIS Tobacco use and exposure Never used 08-27-2019 [facility] (41942) Alcohol intake Current drinker of alcohol 08-27-2019 [facility] (91024) (finding) Alcohol intake 08-27-2019 [facility] (75964) Sex Assigned At Not on file [facility] (55397) Exposure to SARS-CoV-2 Not sure [facility] (23785) (event) The following information is from the [...] BE BASED ON THE PRIMARY CLINICAL RECORDS. [facility] provides no warranty or guarantee of the accuracy or completeness of information in this document. UNRECOGNIZED CONTENT PROVIDED BELOW FOR UNRECOGNIZED SECTION Source Comments In the event this information is protected by the Federal Confidentiality of Alcohol and Drug Abuse Patient Records regulations: The Federal rules restrict any use of the information to criminally investigate or prosecute any alcohol or drug abuse patient.[facility] UNRECOGNIZED CONTENT PROVIDED BELOW FOR UNRECOGNIZED SECTION [...] DATE CREATED AUTHOR AUTHOR'S ORGANIZATIO N 04/11/2020 [facility] Bertin byrd
== END 2019-12-08 10:55 | disposition home or self-care (01) ==
PROVIDERS: Emergency Provider Physician Assistant Medical; PCP Internal Medicine
DX: S90.32XA Contusion of left foot, initial encounter (principal); S86.812A Strain of other muscle(s) and tendon(s) at lower leg level, left leg, initial encounter; W17.2XXA Fall into hole, initial encounter; Y93.9 Activity, unspecified; Y92.9 Unspecified place or not applicable; Y99.9 Unspecified external cause status; I10 Essential (primary) hypertension
CPT/HCPCS: 73610; 73630; 99282

== ENCOUNTER 2021-06-26 16:30 | Emergency (ER) | payer BC, SELFPAY ==
[2021-06-26 16:30] VITALS: BP 152/90; PULSE 91; RESP 18; TEMP 36.1; O2SAT 100; BMI 34.9
--- NOTE | 2021-06-26 18:06 | EDS_ITS ---
HPI HPI - URI History of Present Illness Chief Complaint: Cold Sx Narrative Narrative: 46-year-old male presenting with COVID-19 symptoms. He states that he had a mild cough and fatigue. He states that he lost his sense of taste or smell yesterday. He does not have nausea or vomiting. No diarrhea. No chest pain or shortness of breath. Patient states that he was exposed about a week ago to COVID-19. His daughter was positive. ROS ROS ED Constitutional Constitutional ED: Reports chills and fever(s) Eyes Eyes: Denies blurry vision or diplopia ENT ENT ED: Denies rhinorrhea or sore throat Cardiovascular Cardiovascular: Denies chest pain or palpitations Respiratory/Chest Respiratory/Chest: Reports cough; Denies dyspnea Gastrointestinal Gastrointestinal: Denies abdominal pain, nausea or vomiting Genitourinary Genitourinary ED: Denies dysuria or hematuria Musculoskeletal Musculoskeletal: Reports myalgias; Denies arthralgias or neck pain Integumentary Denies Abrasions or rash Neurologic Neurologic: Reports headache(s); Denies paresthesias or weakness PFSH [facility] Medical History HTN (hypertension) Home Medications lisinopril 20 mg PO DAILY 12/08/19 [Rx Last Taken Unknown] Allergy/AdvReac Type Severity Reaction Status Date / Time No Known Allergies Allergy Verified 12/08/19 09:17 Social History Smoking Status: Never smoker EXAM Physical Exam Const Vital Signs: 06/26/21 16:30 06/26/21 17:09 Temperature 97 F L Temperature Source Temporal Pulse Rate 91 Respiratory Rate 18 Respiratory Effort Normal Non-Labored Respiratory Pattern Normal Blood Pressure 152/90 H Blood Pressure Mean 110 Pulse Ox 100 Oxygen Delivery Method Room Air Positive well nourished General Appearance ED: NAD; Negative for pallor HEENT Reports moist mucous membranes normocephalic and atraumatic Eyes PERRL and EOMs intact bilaterally Neck supple and no meningeal signs Resp normal respiratory effort and clear to auscultation bilaterally Cardio Rate: regular rate Rhythm: regular rhythm Extremity normal to inspection; Negative for full ROM General Extremety ED: Negative for cyanosis General Extremity: Negative for cyanosis Neuro oriented x3 and CN's II-XII intact bilaterally Sensorium / Orientation: alert Skin General Skin Exam: Negative for jaundice or pallor MDM MDM MDM Narrative Medical decision making narrative: Patient presenting with concern for COVID-19 infection. He has very mild symptoms of mild cough and loss of taste and smell. He has not been tested for COVID-19 as of yet and states that he could not continue his primary care physician. Patient states he had symptoms about a week. Clinically with loss of taste and smell is high suspicion for COVID-19, however the patient has only has mild symptoms and I do not foresee him eating a bigger work-up. I will order a Covid PCR and have him quarantine at home until the test results return. Patient is given return precautions. Impression: 1. COVID-19 Discharge Plan Triage Chief Complaint: Cold Sx ED Provider: Nikita Phelps Dx/Rx/DC Orders Instructions: Coronavirus Disease 2019 (COVID-19): Caring for Yourself or Others Primary Care Provider: Finn Salinas Referrals: Finn Salinas MD [Primary Care Provider] - Disposition Disposition: Home, Self Care Discharge Date/Time: 06/26/21 18:11
== END 2021-06-26 18:11 | disposition home or self-care (01) ==
PROVIDERS: Emergency Provider Student in an Organized Health Care Education/Training Program; PCP Internal Medicine
DX: U07.1 COVID-19 (principal); I10 Essential (primary) hypertension; Z79.899 Other long term (current) drug therapy
CPT/HCPCS: 87635; 99282; U0003; U0005

== ENCOUNTER 2021-08-17 12:58 | Emergency (ER) | payer BC, SELFPAY ==
[2021-08-17 12:59] VITALS: BP 138/110; PULSE 83; RESP 16; TEMP 36.1; O2SAT 100; BMI 29.9
--- NOTE | 2021-08-17 13:02 | EKG12_ITS ---
Test Reason : LEFT ARM PAIN Blood Pressure : / mmHG Vent. Rate : 079 BPM Atrial Rate : 079 BPM P-R Int : 168 ms QRS Dur : 076 ms QT Int : 372 ms P-R-T Axes : 061 034 036 degrees QTc Int : 426 ms Normal sinus rhythm Normal ECG Confirmed by SALVATORE MCKEON, ALVIN ([id number]), science editor RAUL MICHAELS ([id number]) on 08/18/2021 10:24:27 AM Referred By: ERIN Confirmed By:ALVIN CHASE MD
== END 2021-08-17 23:59 | disposition left against medical advice (07) ==
LOC: ED 14:06
PROVIDERS: PCP Internal Medicine
DX: M79.602 Pain in left arm (principal)
CPT/HCPCS: 93005

== ENCOUNTER → 2022-05-05 | Outpatient (CLI) | payer OTHER, SELFPAY | END | disposition home or self-care (01) | LOC: SL 20:14 | PROVIDERS: PCP Nurse Practitioner Family; Visit Provider Nurse Practitioner Family | DX: G47.30 Sleep apnea, unspecified (principal); E66.9 Obesity, unspecified; R53.83 Other fatigue; R06.83 Snoring | CPT/HCPCS: 95811 ==